=== PATIENT | male | born 1935 | race Caucasian/White ===

== ENCOUNTER 2017-10-06 14:12 | Inpatient (IN) | payer OTHER, MEDICARE ==
[~2017-10-06] VITALS: Ht 172.7 cm; Wt 59.0 kg
[~2017-10-06 14:12] MED LIST: ALBUTEROL0.09 MG/A1 INH; BENICAR20 MG PO; GOOD SENSE ASPI81 M1 PO; LEVAQUIN500 MG PO; LOMOTIL 0.025 M1 TAB PO; MUCINEX600 MG PO; MULTIVITAMIN1 TA1 PO; NADOLOL20 MG PO; SIMVASTATIN20 MG PO; SPIRIVA 18 MCG18 MCG PO; UROXATRAL10 MG PO; ZOFRAN ODT4 MG PO
--- NOTE | 2017-10-06 15:38 | ED DYSPNEA/ASTHMA COMPLAINT ---
History of Present Illness General Chief Complaint: General Adult Stated Complaint: SENT BY URGENT CARE FOR FLU+/PNEUMONIA Source: patient Exam Limitations: no limitations Vital Signs & Intake/Output Vital Signs & Intake/Output Vital Signs Date Time Temp Pulse Resp B/P B/P Pulse O2 O2 Flow FiO2 Mean Ox Delivery Rate 10/06 1819 98.1 72 18 154/68 97 Nasal 2.0L Cannula 10/06 1705 71 18 138/70 90 Room Air 10/06 1639 92 10/06 1432 97.3 73 20 160/71 90 Room Air Allergies Coded Allergies: erythromycin base (ABD PAIN 10/06/17) Reconcile Medications Albuterol Sulfate 2.5 MG/3 ML (0.083 %) VIAL.NEB 1 Vial INH/JOSE BID PRN COPD (Reported) Alfuzosin HCl (Alfuzosin HCl ER) 10 MG TAB.ER.24H 1 TAB PO DAILY (Reported ) Aspirin (Ecotrin*) 81 MG TABLET.DR 1 TAB PO DAILY HEART/BLOOD (Reported) Finasteride 5 MG TABLET 1 TAB PO DAILY PROSTATE (Reported) Guaifenesin (Mucinex) 600 MG TAB.ER.12H 1 TAB PO BID COPD (Reported) Moxifloxacin HCl 400 MG TABLET 1 TAB PO DAILY ABX (Reported) Multiple Vitamin (Multivitamins) 1 EACH TABLET 1 TAB PO DAILY SUPPLEMENT ( Reported) Nadolol 20 MG TABLET 0.5 TAB PO DAILY BP (Reported) Nitroglycerin (Nitrostat) 0.3 MG TAB.SUBL 1 TAB SL AD PRN CHEST PAIN ( Reported) Olmesartan Medoxomil (Benicar) 20 MG TABLET 0.5 TAB PO DAILY BP (Reported) Simvastatin (Simvastatin*) 20 MG TABLET 1 TAB PO QPM CHOLESTEROL (Reported) Tiotropium Polaris (Spiriva) 18 MCG CAP.W.DEV 1 CAP INH DAILY COPD (Reported) Triage Note: PT TO ED FOR URI S/S. WAS SEEN AT URGENT CARE YESTERDAY AND DIAGNOSED WITH FLU AND PNA. WAS PUT ON AVELOX, AFTER PT TOOK THE FIRST DOSE HE FELT DIZZY. HAS NOT TAKEN ANY MORE TODAY. Triage Nurses Notes Reviewed? 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 He does state that yesterday he was evaluated at urgent care facility and had chest x-ray findings concerning of pneumonia and influenza he began moxifloxacin Denies any leg swelling denies any hemoptysis denies any current chest pain back pain and arm pain jaw pain palpitations [place] productive cough is noted by patient (Richy Kolb) Past History Travel History Traveled to [place] past 21 day No Medical History Any Pertinent Medical History? 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 No (Richy Kolb) Review of Systems Review of Systems Constitutional: Reports: see HPI. EENTM: Reports: see HPI. Respiratory: Reports: see HPI, cough. Cardiovascular: Reports: see HPI. GI: Reports: no symptoms. Genitourinary: Reports: no symptoms. Musculoskeletal: Reports: no symptoms. Skin: Reports: no symptoms. Neurological/Psychological: Reports: no symptoms. Hematologic/Endocrine: Reports: no symptoms. Immunologic/Allergic: Reports: no symptoms. All Other Systems: Reviewed and Negative (Richy Kolb) Physical Exam Physical Exam General Appearance: no apparent distress, alert, comfortable Head: atraumatic Eyes: Bilateral: normal appearance, PERRL. Ears, Nose, Throat: normal pharynx, normal ENT inspection, hearing grossly normal Neck: normal inspection Respiratory: no respiratory distress, quiet respiration, decreased breath sounds Cardiovascular: regular rate/rhythm Peripheral Pulses: 2+ radial (R) Gastrointestinal: normal bowel sounds, soft, non-tender Extremities: normal inspection, normal capillary refill, normal range of motion, no edema Neurologic/Psych: no motor/sensory deficits, awake, alert Skin: intact, normal color Core Measures ACS in differential dx? Yes CVA/TIA Diagnosis No Sepsis Present: No Sepsis Focused Exam Completed? No (Miriam LUU,Richy) Progress Differential Diagnosis: asthma, AMI, bronchitis, costochondritis, CHF, COPD, musculoskeletal pain, pericarditis, pulmonary embolism, pneumonia, pneumothorax, rib fracture, unstable angina Plan of Care: Orders Procedure Date/time Status Regular Diet 10/07 B Active TROPONIN LEVEL 10/07 399 Active CBC WITHOUT DIFFERENTIAL 10/07 399 Active BASIC ELECTROLYTES PLUS BUN&CR 10/07 399 Active EKG 10/07 399 Active TROPONIN LEVEL 10/06 2199 Active EKG 10/06 2199 Active Pathway - chart 10/06 2049 Active House Staff 10/06 2049 Active Patient Data 10/06 2049 Active Patient Data 10/06 2004 Active OXYGEN SETUP (GEN) 10/06 192 Active Saline Lock 10/06 1920 Active Admit to inpatient 10/06 192 Active Vital Signs 10/06 192 Active Activity/Ambulation 10/06 192 Active Code Status 10/06 192 Active LACTIC ACID 10/06 1809 Active Telemetry/Threading Machine Feeder Automatic 10/06 1552 Active LOWER RESPIRATORY CULTURE 10/06 1552 Active D-DIMER 10/06 1552 Complete RAPID VIRAL INFLUENZA A 10/06 1509 Complete BLOOD CULTURE 10/06 1509 Active TROPONIN LEVEL 10/06 1509 Complete LACTIC ACID 10/06 1509 Complete COMPREHENSIVE METABOLIC PANEL 10/06 1509 Complete CBC WITHOUT DIFFERENTIAL 10/06 1509 Complete EKG 10/06 1509 Active VTE Mechanical Prophylaxis 10/06 UNK Active FingerStick- Glucose 10/06 UNK Active Laboratory Tests 10/06/17 1600: Anion Gap 12, Estimated GFR > 60, BUN/Creatinine Ratio 17.0, Glucose 106 H, Lactic Acid 1.0, Calcium 8.9, Total Bilirubin 0.9, AST 52, ALT 41, Alkaline Phosphatase 68, Troponin I 0.05, Total Protein 7.3, Albumin 4.3, Globulin 3.0, Albumin/Globulin Ratio 1.4, D-Dimer High Sensitivty 213, CBC w Diff NO MAN DIFF REQ, RBC 4.06 L, MCV 87.8, MCH 29.6, MCHC 33.8, RDW 14.1, MPV 8.7, Gran % 64.1, Lymphocytes % 28.1, Monocytes % 7.4, Eosinophils % 0.2, Basophils % 0.2, Absolute Granulocytes 4.5, Absolute Lymphocytes 2.0, Absolute Monocytes 0.5, Absolute Eosinophils 0, Absolute Basophils 0 Microbiology 10/06 1630 BLOOD: Blood Culture - RECD 10/06 1610 BLOOD: Blood Culture - RECD 10/06 1558 NASOPHARYN: Influenza Virus A & B Rapid Smear - COMP INFLUENZA TYPE B 10/06 155 LOWER RESP: Respiratory Culture - ORD 10/06 155 LOWER RESP: Gram Stain - ORD Patient upon initial presentation was resting comfortably bedside no respiratory distress Patient afebrile, decreased breath sounds noted nebulizer treatments were administered patient does have low 90% oxygen sat at room air patient was given supplemental oxygen which improved Patient has positive influenza Tamiflu was administered Chest x-ray shows no overwhelming convincing evidence of pneumonia however doxycycline and Rocephin was administered IV for concerns of bronchitis Patient also has consideration of COPD exacerbation due to shortness of breath Patient also has concerns of angina on exertion however while at rest in the emergency room his had no symptoms of chest pain or pressure No signs of sepsis d-dimer was unremarkable no concerns of PE No concerns of acute UT initial troponin negative no change in EKG Diagnostic Imaging: Viewed by Me: Radiology Read. Radiology Impression: no acute abnormality Initial ED EK BPM,MULTIPLE ARTIFACT NOTED Comments: PATIENT: RAGHU MONTEJO PRESENT AGE: 81 PATIENT ACCOUNT NO: [id number] : 33 LOCATION: [facility] ORDERING PHYSICIAN: Juan Ramon LUU SERVICE DATE: 10/06/17 EXAM TYPE: RAD - XRY-CHEST XRAY, TWO VIEWS EXAMINATION: XR CHEST CLINICAL INFORMATION: Cough and fever. COMPARISON: Chest radiograph 06/14/2017. TECHNIQUE: 3 radiographs of the chest were obtained including 2 PA radiographs and one lateral radiograph. FINDINGS: Postoperative changes of prior CABG with median sternotomy wires. Stable prominence of the pulmonary interstitium bilaterally likely represents chronic scarring. No focal airspace consolidation. No pleural effusion. Cardiomediastinal silhouette and pulmonary vasculature are within normal limits and unchanged from the prior examination. Degenerative changes of the spine. No acute osseous findings. IMPRESSION: Stable appearance of the chest. No acute cardiopulmonary disease. DICTATED BY: True Figueroa MD DATE/TIME DICTATED:10/06/171739 SLIVER HANDLER:JOHNNA (Richy Kolb) Departure Departure Disposition: STILL A PATIENT Condition: Stable Clinical Impression Primary Impression: Angina effort Secondary Impressions: Bronchitis, COPD exacerbation, Influenza Referrals: Luther Hernandez MD (PCP/Family) Departure Forms: Customer Survey General Discharge Information Admission Note Spoke With: Eladio Wolf MD Documentation of Exam: Documentation of any treatments & extenuating circumstances including Concerns Regarding Discharge (functional status, medication knowledge or non-compliance, living conditions, etc.) that warrant an admission rather than observation: [ Discuss patient with Dr. Wolf who is covering for Dr. Hernandez and which telemetry admission is warranted for concerns of angina on exertion, ] patient warrants telemetry monitoring repeat EKG cardiology consultation, IV antibiotics IV steroids pulmonary consultation Tamiflu antitussives repeat nebulizer treatments (Richy Kolb) PA/FURNACE WORKER Co-Sign Statement Statement: ED Attending supervision documentation- x I saw and evaluated the patient. I have also reviewed all the pertinent lab results and diagnostic results. I agree with the findings and the plan of care as documented in the PA's/FURNACE WORKER's documentation. pneumonia, flu, exertional chest pain [] I have reviewed the ED Record and agree with the PA's/FURNACE WORKER's documentation. [] Additions or exceptions (if any) to the PAs/FURNACE WORKER's note and plan are summarized below: [] (Malu ALMODOVAR,Umang) Critical Care Note Critical Care Note Critical Care Time: 30-74 min (Richy Kolb)
[2017-10-06] MEDS ORDERED: BENICAR20 M1 PO (16:06)
[2017-10-06] MEDS ORDERED: SIMVASTATIN20 M2 PO (16:07)
[2017-10-06] MEDS ORDERED: NADOLOL20 M1 PO (16:07)
[2017-10-06] MEDS ORDERED: FINASTERIDE5 M1 PO (16:07)
[2017-10-06] MEDS ORDERED: MULTIVITAMINS1 EAC9 PO (16:07)
[2017-10-06] MEDS ORDERED: ALBUTEROL2.5 MG/3 M INH/SOL (16:08)
[2017-10-06] MEDS ORDERED: ASPIRIN EC81 M1 PO (16:08)
[2017-10-06] MEDS ORDERED: SPIRIVA18 MCG INH (16:08)
[2017-10-06] MEDS ORDERED: MUCINEX600 M1 PO (16:08)
[2017-10-06] MEDS ORDERED: MOXIFLOXACIN H400 M2 PO (16:09)
[2017-10-06] MEDS ORDERED: ALFUZOSIN HCL E10 MG PO (16:10)
[2017-10-06] MEDS ORDERED: NITROSTAT0.3 M1 SL (16:10)
[2017-10-06 16:15] LABS: ABSOLUTE BASOPHIL COUNT 0 /CUMM (0.0-0.2); ABSOLUTE EOSINOPHIL COUNT 0 /CUMM (0.0-0.7); ABSOLUTE GRANULOCYTE CT 4.5 /CUMM (1.4-6.5); ABSOLUTE MONOCYTE COUNT 0.5 /CUMM (0.10-0.60); BASOPHIL % 0.2 % (0.0-2.0); EOSINOPHIL % 0.2 % (0-5); GRANULOCYTE % 64.1 % (42.2-75.2); HEMATOCRIT 35.7 % (42-52); MEAN CORPUSCULAR HGB 29.6 PG (27.0-31.0); MEAN CORPUSCULAR HGB CONC 33.8 G/DL (33.0-37.0); MEAN CORPUSCULAR VOLUME 87.8 FL (80.0-94.0); MEAN PLATELET VOLUME 8.7 FL (7.4-10.4); PLATELET COUNT 183 /CUMM (130-400); RBC DISTRIBUTION WIDTH 14.1 % (11.5-14.5); RED BLOOD CELL CT 4.06 /CUMM (4.70-6.10)
--- NOTE | 2017-10-06 17:45 | RADIOLOGY REPORT ---
EXAMINATION: XR CHEST CLINICAL INFORMATION: Cough and fever. COMPARISON: Chest radiograph 06/14/2017. TECHNIQUE: 3 radiographs of the chest were obtained including 2 PA radiographs and one lateral radiograph. FINDINGS: Postoperative changes of prior CABG with median sternotomy wires. Stable prominence of the pulmonary interstitium bilaterally likely represents chronic scarring. No focal airspace consolidation. No pleural effusion. Cardiomediastinal silhouette and pulmonary vasculature are within normal limits and unchanged from the prior examination. Degenerative changes of the spine. No acute osseous findings. IMPRESSION: Stable appearance of the chest. No acute cardiopulmonary disease.
--- NOTE | 2017-10-06 20:35 | History & Physical ---
Himanshu ALMODOVAR,Nirav 10/06/172034: General Information and HPI History of Present Illness: Mr. Marie is an 81-year-old male with past medical history of hypertension, hyperlipidemia, myocardial infarction followed by Dr. Grant, COPD followed by Dr. Mcmanus not on home oxygen who presents with upper respiratory infection. The patient started feeling URI symptoms on Sunday including productive cough, fever to 101.5, nasal congestion. His symptoms progressed and on Sunday he visited an urgent care where he was diagnosed with influenza and pneumonia. He was prescribed moxifloxacin. On Sunday, he took the moxifloxacin after breakfast and immediately became "woozy" for about 5 minutes. He denies actually losing consciousness or falling at this time. Today, he also complained of some chest pain with exertion and relieved by nitroglycerin. He has a history of stable angina and never expresses chest pain at rest. He denies any chills, nausea, vomiting, diarrhea, palpitations, orthopnea, leg pain, dysuria, or sore throat. Allergies/Medications Allergies: Coded Allergies: erythromycin base (ABD PAIN 10/06/17) Home Med list Albuterol Sulfate 2.5 MG/3 ML (0.083 %) VIAL.NEB 1 Vial INH/JOSE BID PRN COPD (Reported) Alfuzosin HCl (Alfuzosin HCl ER) 10 MG TAB.ER.24H 1 TAB PO DAILY (Reported ) Aspirin (Ecotrin*) 81 MG TABLET.DR 1 TAB PO DAILY HEART/BLOOD (Reported) Finasteride 5 MG TABLET 1 TAB PO DAILY PROSTATE (Reported) Guaifenesin (Mucinex) 600 MG TAB.ER.12H 1 TAB PO BID COPD (Reported) Moxifloxacin HCl 400 MG TABLET 1 TAB PO DAILY ABX (Reported) Multiple Vitamin (Multivitamins) 1 EACH TABLET 1 TAB PO DAILY SUPPLEMENT ( Reported) Nadolol 20 MG TABLET 0.5 TAB PO DAILY BP (Reported) Nitroglycerin (Nitrostat) 0.3 MG TAB.SUBL 1 TAB SL AD PRN CHEST PAIN ( Reported) Olmesartan Medoxomil (Benicar) 20 MG TABLET 0.5 TAB PO DAILY BP (Reported) Simvastatin (Simvastatin*) 20 MG TABLET 1 TAB PO QPM CHOLESTEROL (Reported) Tiotropium Bells (Spiriva) 18 MCG CAP.W.DEV 1 CAP INH DAILY COPD (Reported) Past History Travel History Traveled to [place] past 21 day No Medical History Neurological: NONE EENT: NONE Cardiovascular: hypertension, hyperlipidemia, myocardial infarction Respiratory: COPD, pneumonia Gastrointestinal: NONE Hepatic: NONE Renal: NONE Musculoskeletal: NONE Psychiatric: NONE Endocrine: NONE Blood Disorders: NONE Cancer(s): NONE 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 EENTM: Reports: see HPI. Cardiovascular: Reports: see HPI. Respiratory: Reports: see HPI. GI: Reports: no symptoms. Genitourinary: Reports: no symptoms. Musculoskeletal: Reports: no symptoms. Skin: Reports: no symptoms. Neurological/Psychological: Reports: no symptoms. Hematologic/Endocrine: Reports: no symptoms. Immunologic/Allergic: Reports: no symptoms. All Other Systems: Reviewed and Negative Exam & Diagnostic Data Last 24 Hrs of Vital Signs/I&O Vital Signs Date Time Temp Pulse Resp B/P B/P Pulse O2 O2 Flow FiO2 Mean Ox Delivery Rate 10/06 2236 98.2 68 12 136/70 93 10/06 2224 94 Nasal 2.0L Cannula 10/06 2111 98.2 84 18 128/66 94 Room Air 10/06 1819 98.1 72 18 154/68 97 Nasal 2.0L Cannula 10/06 1705 71 18 138/70 90 Room Air 10/06 1639 92 10/06 1432 97.3 73 20 160/71 90 Room Air Intake & Output 10/07 0800 10/07 0000 10/06 1600 Intake Total 180 Output Total 350 Balance -170 Intake, Oral 180 Output, Urine 350 Patient 58.967 kg 58.967 kg Weight Weight Reported by Patient Measurement Method Physical Exam General Appearance Alert, Oriented X3, Cooperative, No Acute Distress Cardiovascular Regular Rate, Normal S1, Normal S2 Lungs expiratory crackles and wheezing Abdomen Normal Bowel Sounds, Soft, No Tenderness Neurological Normal Speech Extremities No Edema, Normal Pulses, No Tenderness/Swelling Last 24 Hrs of Labs/Darío: Laboratory Tests 10/06/179: Troponin I 0.06 10/06/17 1600: Anion Gap 12, Estimated GFR > 60, BUN/Creatinine Ratio 17.0, Glucose 106 H, Lactic Acid 1.0, Calcium 8.9, Total Bilirubin 0.9, AST 52, ALT 41, Alkaline Phosphatase 68, Troponin I 0.05, Total Protein 7.3, Albumin 4.3, Globulin 3.0, Albumin/Globulin Ratio 1.4, D-Dimer High Sensitivty 213, CBC w Diff NO MAN DIFF REQ, RBC 4.06 L, MCV 87.8, MCH 29.6, MCHC 33.8, RDW 14.1, MPV 8.7, Gran % 64.1, Lymphocytes % 28.1, Monocytes % 7.4, Eosinophils % 0.2, Basophils % 0.2, Absolute Granulocytes 4.5, Absolute Lymphocytes 2.0, Absolute Monocytes 0.5, Absolute Eosinophils 0, Absolute Basophils 0 Microbiology 10/06 2124 URINE ROUT: Legionella Antigen - COMP 10/06 2124 URINE ROUT: Streptococcus pneumoniae Antigen (M - COMP 10/06 2053 URINE ROUT: Legionella Antigen - CAN Cancelled: COMBINED WITH [id number] 10/06 163 BLOOD: Blood Culture - RECD 10/06 161 BLOOD: Blood Culture - RECD 10/06 1558 NASOPHARYN: Influenza Virus A & B Rapid Smear - COMP INFLUENZA TYPE B 10/06 1552 LOWER RESP: Respiratory Culture - COLB 10/06 155 LOWER RESP: Gram Stain - COLB Assessment/Plan Assessment: Mr. Marie is 81-year-old male with past medical history of hypertension, hyperlipidemia, myocardial infarction followed by Dr. Grant, COPD who presents with upper respiratory infection. On presentation, vital signs were T 97.3, HR 73, RR 20, BP 160/71, saturating 90 % on room air. Laboratories were significant for white blood cell count 7.0, hemoglobin 12.0, sodium 135, chloride 94, troponin 0.05, d-dimer 212. Chest x- ray was negative for any acute abnormality. Flu swab was positive for influenza type B. He received guaifenesin, doxycycline, and ceftriaxone, ostelmevir, methylprednisone, and albuterol in the emergency room. He'll be admitted to telemetry and treated for the following problems: 1. Influenza type B 2. Community-acquired pneumonia 3. Normocytic anemia 4. Mild hyponatremia 5. Stable Angina #Influenza type B/Community-acquired pneumonia: Patient was diagnosed with influenza pneumonia at urgent care. Chest x-ray today does not show any evidence of pneumonia but flu swab positive for influenza type B. -Oseltamivir -Methylprednisone -TRC nebs -Ceftriaxone and doxycycline #Stable Angina: Patient has history of stable angina. -EKG and troponins 3 #Normocytic anemia: Mild and asymptomatic -Iron studies and stool guaiac #Mild hyponatremia: Sodium 135. -Continue to monitor #Chronic medical problems: -Continue home medications DVT prophylaxis with enoxaparin Heart healthy diet Full code As Ranked By This Provider Problem List: 1. Type B influenza Core Measures/Misc (05/13) Acute Coronary Syndrome ACS Diagnosis: No Congestive Heart Failure Congestive Heart Failure Diagnosis No Cerebrovascular Accident CVA/TIA Diagnosis: No VTE (View Protocol) VTE Risk Factors Age>40 No Mechanical VTE Prophylaxis d/t N/A MechProphylax Ordered No VTE Pharm Prophylaxis d/t NA PharmProphylax ordered Sepsis (View protocol) Sepsis Present: No Ewa Arreola MD 10/06/17 2345: Resident Review Statement Resident Statement: examined this patient, discussed with compliance intern Other Findings: Mr Owen is an 81-year-old male with past medical history of hypertension, hyperlipidemia, myocardial infarction (followed by Dr. Grant) and COPD (not on home O2) who presented to the emergency department on 10/06/2017 complaining of exertional chest pain. The patient states that his symptoms of feeling under the weather began on 2017. He subsequently visited the urgent care in [place] ([address] [place] [address]) on 2017 and it appears that he was diagnosed with influenza. The patient stated that he was prescribed a dose of moxifloxacin. He stated that he took one of these medications and soon thereafter developed an "upset stomach". He states that he felt slightly nauseous but did not endorse any emesis. He also felt lightheaded, however did not pass out. He has subsequently not taken any more moxifloxacin. He also endorses a cough. Cough is been productive of workman sputum. Patient lives alone at home. Patient's primary care physician is Dr. Hernandez. Patient's neon tube bender is Dr. Grant. Patient's nuisance wildlife specialist is Dr. Mcmanus. R: At the time of our clinical interaction he denied any chills, nausea, vomiting, palpitations. He did endorse subjective chills up to 101.5 year he also endorses chest pain and dyspnea on exertion. Denies any dysuria or frequency. E: Temperature 97.3. Pulse 73. Respirations 20. Blood pressure 160/71. General Appearance Alert, Oriented X3, Cooperative, No Acute Distress. Skin Temp/Moisture Exam: Warm/Dry. Neck Supple,Normal Range of motion. JVD + Cardiovascular : RRR, Normal S1, Normal S2. Lungs: Diminished BS. Crackles and Wheezing noted L > R Abdomen Normal Bowel Sounds, Soft, No Tenderness Neurological Normal Speech, Strength at 5/5 X4 Ext, Normal Tone, Sensation Intact, Cranial Nerves 3-12 NL. Vascular Pulses Symmetrical. L: Labs WBC 7.0. H&H 12.0 and 35.7. Platelets 183. Sodium 135. Potassium 4.4. BUN 17. Creatinine 1.0. EKG: Rate 74. QT 424. Questionable Incomplete right bundle branch block. I: XRY-CHEST XRAY, TWO VIEWS IMPRESSION: Stable appearance of the chest. No acute cardiopulmonary disease. A/P Mr Owen is an 81-year-old male with past medical history of hypertension, hyperlipidemia, myocardial infarction (followed by Dr. Grant) and COPD (not on home O2) who presented to the emergency department on 10/06/2017 complaining of exertional chest pain. Acute hypoxic respiratory failure, likely worsened by recent diagnosis of flu. Questionable community-acquired pneumonia. Chest pain likely related to angina. History of COPD. History of BPH. Will admit him to telemetry. Serial troponins and EKGs. Obtain cardiology consultation in a.m. May be considered for risk stratification with an outpatient stress test. Does not appear that the patient has had an echocardiogram in the past. Obtain echocardiogram for assessment of ejection fraction. Continue ceftriaxone and doxycycline. Repeat chest x-ray in a.m. for reassessment of worsening opacities vs consolidation (May consider following off antibiotics if patient remains afebrile and culture are negative). IV Solu-Medrol 40 mg every 12. May consider transitioning to prednisone with a quick taper if wheezing improved in a.m. [facility] nebs. Spiriva. Albuterol. Obtain pulmonary consult in am. Incentive spirometer. In the emergency department the patient was found to have a positive flu. Continue Tamiflu twice a day. Continue home medications. DVT prophylaxis with Lovenox. Diet heart healthy. Patient is a full code. Maryann ALMODOVAR,Eladio 10/07/17 1318: Attending MD Review Statement Attending Statement Attending MD Statement: examined this patient, discuss w/resident/PA/SUPPLY CHAIN PROJECT MANAGER, reviewed EMR data (avail), reviewed images, amended to note Attending Assessment/Plan: Mr. Marie was interviewed and examined. His EMR was reviewed. Problems: -AECOPD -Influenza B by rapid test (patient without GI symptoms) -New-onset A. fib/A flutter -CAD history of previous [place] -Exacerbation of stable angina -Hypertension -Hyperlipidemia -BPH Plan: -Admit telemetry -Blood and sputum cultures -Tamiflu -Ceftriaxone and doxycycline (patient pen allergic) -TRC, nebs, oxygen supplementation, Spiriva -Trinitroglycerin when necessary -Serial troponin, EKG -Echocardiogram -Cardiology consultation -Continue statin, beta regan, ASA -Low molecular weight heparin
[2017-10-06 22:37] VITALS: BP 136/70
[2017-10-07 04:34] LABS: ABSOLUTE BASOPHIL COUNT 0 /CUMM (0.0-0.2); ABSOLUTE EOSINOPHIL COUNT 0 /CUMM (0.0-0.7); ABSOLUTE GRANULOCYTE CT 2.5 /CUMM (1.4-6.5); ABSOLUTE MONOCYTE COUNT 0.1 /CUMM (0.10-0.60); BASOPHIL % 0.3 % (0.0-2.0); EOSINOPHIL % 0.1 % (0-5); GRANULOCYTE % 68.1 % (42.2-75.2); HEMATOCRIT 35.2 % (42-52); MEAN CORPUSCULAR HGB 29.4 PG (27.0-31.0); MEAN CORPUSCULAR HGB CONC 33.8 G/DL (33.0-37.0); MEAN CORPUSCULAR VOLUME 87.2 FL (80.0-94.0); MEAN PLATELET VOLUME 8.9 FL (7.4-10.4); PLATELET COUNT 182 /CUMM (130-400); RBC DISTRIBUTION WIDTH 13.6 % (11.5-14.5); RED BLOOD CELL CT 4.03 /CUMM (4.70-6.10); WHITE BLOOD CELL COUNT 3.7 /CUMM (4.8-10.8)
[2017-10-07 06:27] VITALS: BP 116/66
--- NOTE | 2017-10-07 10:00 | Cons- Pulmonary ---
General Information and HPI Consulting Request Date of Consult: 10/07/17 Requested By: Niki Reason for Consult: Shortness of breath influenza History of Present Illness: Patient has history coronary disease COPD not on home oxygen developed URI symptoms was found to have the flu and reportedly diagnosed with pneumonia treated with Tamiflu and moxifloxacin. He felt poorly with chest pain and was admitted. Chest x-ray did not show evidence of pneumonia. He was influenza B positive. He is presently improved. He has scant productive cough Allergies/Medications Allergies: Coded Allergies: erythromycin base (ABD PAIN 10/06/17) Home Med List: Albuterol Sulfate 2.5 MG/3 ML (0.083 %) VIAL.NEB 1 Vial INH/JOSE BID PRN COPD (Reported) Alfuzosin HCl (Alfuzosin HCl ER) 10 MG TAB.ER.24H 1 TAB PO DAILY (Reported ) Aspirin (Ecotrin*) 81 MG TABLET.DR 1 TAB PO DAILY HEART/BLOOD (Reported) Finasteride 5 MG TABLET 1 TAB PO DAILY PROSTATE (Reported) Guaifenesin (Mucinex) 600 MG TAB.ER.12H 1 TAB PO BID COPD (Reported) Moxifloxacin HCl 400 MG TABLET 1 TAB PO DAILY ABX (Reported) Multiple Vitamin (Multivitamins) 1 EACH TABLET 1 TAB PO DAILY SUPPLEMENT ( Reported) Nadolol 20 MG TABLET 0.5 TAB PO DAILY BP (Reported) Nitroglycerin (Nitrostat) 0.3 MG TAB.SUBL 1 TAB SL AD PRN CHEST PAIN ( Reported) Olmesartan Medoxomil (Benicar) 20 MG TABLET 0.5 TAB PO DAILY BP (Reported) Simvastatin (Simvastatin*) 20 MG TABLET 1 TAB PO QPM CHOLESTEROL (Reported) Tiotropium [place] (Spiriva) 18 MCG CAP.W.DEV 1 CAP INH DAILY COPD (Reported) Review of Systems Review of Systems Constitutional: Reports: fever, weakness. Denies: chills. Cardiovascular: Reports: chest pain. Respiratory: Reports: cough, short of breath, sputum production. Denies: hemoptysis. GI: Denies: abdominal pain, diarrhea, melena. 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: NONE Surgical History Surgical History: non-contributory Psychosocial History Services at Home: N/A Smoking Status: Former Smoker ETOH Use: denies use Illicit Drug Use: denies illicit drug use Exam & Diagnostic Data Last 24 Hrs of Vital Signs/I&O Vital Signs Date Time Temp Pulse Resp B/P B/P Pulse O2 O2 Flow FiO2 Mean Ox Delivery Rate 10/07 626 98.2 77 18 116/66 96 Nasal Cannula 10/07 0008 93 Nasal 2.0L Cannula 10/06 2237 98.2 68 12 136/70 93 10/06 2224 94 Nasal 2.0L Cannula 10/06 211 98.2 84 18 128/66 94 Room Air 10/06 1819 98.1 72 18 154/68 97 Nasal 2.0L Cannula 10/06 1705 71 18 138/70 90 Room Air 10/06 1639 92 10/06 1432 97.3 73 20 160/71 90 Room Air Intake & Output 10/07 1600 10/07 0800 10/07 0000 Intake Total 240 180 Output Total 350 Balance 240 -170 Intake, Oral 240 180 Output, Urine 350 Patient 130 lb Weight Since saturation 2 L 96% exam of his chest shows somewhat diminished breath sounds there are no wheezes or crackles cardiac exam showed regular S1 and S2 without murmurs abdomen soft nontender and there is no edema Last 48 Hrs of Labs/Darío: Laboratory Tests 10/07/17 0400: Anion Gap 8, Estimated GFR > 60, BUN/Creatinine Ratio 20.0, Troponin I 0.05, CBC w Diff NO MAN DIFF REQ, RBC 4.03 L, MCV 87.2, MCH 29.4, MCHC 33.8, RDW 13.6, MPV 8.9, Gran % 68.1, Lymphocytes % 28.4, Monocytes % 3.1, Eosinophils % 0.1, Basophils % 0.3, Absolute Granulocytes 2.5, Absolute Lymphocytes 1.0 L, Absolute Monocytes 0.1, Absolute Eosinophils 0, Absolute Basophils 0 10/06/17 2139: Troponin I 0.06 10/06/17 1600: Anion Gap 12, Estimated GFR > 60, BUN/Creatinine Ratio 17.0, Glucose 106 H, Lactic Acid 1.0, Calcium 8.9, Iron 34 L, TIBC 327, Ferritin 130.0, Total Bilirubin 0.9, AST 52, ALT 41, Alkaline Phosphatase 68, Troponin I 0.05, Total Protein 7.3, Albumin 4.3, Globulin 3.0, Albumin/Globulin Ratio 1.4, Vitamin B12 893, Folate > 20.0 H, D-Dimer High Sensitivty 213, CBC w Diff NO MAN DIFF REQ, RBC 4.06 L, MCV 87.8, MCH 29.6, MCHC 33.8, RDW 14.1, MPV 8.7, Gran % 64.1, Lymphocytes % 28.1, Monocytes % 7.4, Eosinophils % 0.2, Basophils % 0.2, Absolute Granulocytes 4.5, Absolute Lymphocytes 2.0, Absolute Monocytes 0.5, Absolute Eosinophils 0, Absolute Basophils 0 Microbiology 10/06 2124 URINE ROUT: Legionella Antigen - COMP 10/06 2124 URINE ROUT: Streptococcus pneumoniae Antigen (M - COMP 10/06 1558 NASOPHARYN: Influenza Virus A & B Rapid Smear - COMP INFLUENZA TYPE B Assessment/Plan Impression/Plan: 81-year-old gentleman with COPD admitted with influenza. It is no evidence of community acquired pneumonia on chest x-ray. Recommendations: Taper FiO2 his saturations allow complete course of Tamiflu with cultures remain negative discontinue antibiotics. Consult Acknowledgment - Thank you for your consult request.
--- NOTE | 2017-10-07 13:36 | PN- Att Addend ---
Attending Addendum Attending Brief Note Mr. Marie was interviewed and examined. His EMR was reviewed. He denies fever, chills, and productive cough. He is afebrile with stable vital signs. Telemetry at this time shows flutter waves with controlled response. He is in no acute distress. Pulmonary exam reveals moderately decreased breath sounds with mild increase in expiratory phase and coarse rhonchi. Cardiovascular exam reveals an irregular rhythm. His extremities are benign. WBC is 3700. Blood and sputum cultures are negative. We are treating Mr. Marie for AECOPD and influenza B by rapid determination. We are continuing his pulmonary medications. We are also continuing his cardiac medications and will consult cardiology concerning his new rhythm.
--- NOTE | 2017-10-07 13:53 | Admission Certification ---
Admission Certification Certification Statement - As attending physician, I certify that at the time of - admission, based on clinical presentation, severity of - symptoms, need for further diagnostic testing and - therapeutic interventions, and risk of adverse outcomes - without in-hospital treatment, in my clinical assessment, - this patient requires an acute hospital stay for a minimum - of two nights or longer. I have also considered psychsocial - factors such as support system, advanced age, financial - issues, cognitive issues, and failed out-patient treatments, - past re-admission history, safety of patient, and lack of - compliance as applicable. Specific rationale supporting this admission is: Treatment of AECOPD with hypoxemia and evaluation and treatment of new arrhythmia
--- NOTE | 2017-10-07 14:06 | PN- Housestaff ---
Subjective Follow-up For: Influenza type B, Committed code pneumonia Atrial fibrillation Tele-Events Since Last Visit: Normal sinus rhythm, atrial fibrillation/flutter, CA 74-87, PVCs Subjective: Patient visited today, he isn't old gentleman was sitting at the bedside comfortably in no acute distress, was alert and oriented. No fever or chills, improved shortness of breathing, no chest pain. Rate changed to afebrile overnight. Cardiology consulted, Eliquis to a lower dose of 2.5 mg was started due to age and weight outpatient. Pulmonary consult, suggested to discontinue antibiotics if cultures remain negative. Blood sugars were high which were contributed to Solu-Medrol. We will start on low dose sliding scale. Review of Systems Constitutional: Reports: see HPI. Objective Last 24 Hrs of Vital Signs/I&O Vital Signs Date Time Temp Pulse Resp B/P B/P Pulse O2 O2 Flow FiO2 Mean Ox Delivery Rate 10/07 1415 98.1 75 16 116/60 95 Nasal 2.0L Cannula 10/07 1115 Nasal 2.0L Cannula 10/07 1114 98 Nasal 2.0L Cannula 10/07 1054 98.2 78 18 116/66 10/07 0627 98.2 77 18 116/66 96 Nasal Cannula 10/07 0008 93 Nasal 2.0L Cannula 10/06 2237 98.2 68 12 136/70 93 10/06 2224 94 Nasal 2.0L Cannula 10/06 2111 98.2 84 18 128/66 94 Room Air Intake & Output 10/07 1600 10/07 0800 10/07 0000 Intake Total 240 180 Output Total 350 Balance 240 -170 Intake, Oral 240 180 Output, Urine 350 Patient 130 lb Weight Physical Exam General Appearance: Alert, Oriented X3, Cooperative, No Acute Distress Skin Temp/Moisture Exam: Warm/Dry Sepsis Skin Exam (color): Normal for Ethnicity HEENT: Atraumatic, EOMI, Mucous Membr. moist/pink Neck: Supple Cardiovascular: Normal S1, Normal S2, irregular, tachycardic Lungs: Normal Air Movement, bilateral wheezing and crackles Abdomen: Soft, No Tenderness Neurological: Normal Speech Current Medications: Current Medications Sig/Sofya Start time Last Medication Dose Route Stop Time Status Admin Albuterol Sulfate 3 ML BID 10/07 2200 AC 10/07 INH 1110 Albuterol Sulfate 3 ML BID PRN 10/06 2199 DC INH Apixaban 2.5 MG BID 10/07 1530 AC 10/07 PO 1648 Aspirin Buffered 81 MG DAILY 10/06 2151 AC 10/07 PO 1051 Atorvastatin Calcium 20 MG 1700 10/06 2200 AC 10/07 PO 1648 Benzonatate 100 MG TID PRN 10/06 2345 AC PO Ceftriaxone Sodium 1,000 MG 10/07 AC IV Ceftriaxone Sodium 0 .STK-MED ONE 10/06 1905 DC .ROUTE Ceftriaxone Sodium 1,000 MG ONCE ONE 10/06 1899 DC 10/06 IV 10/06 190 191 Doxycycline Hyclate 100 MG 10/07 AC Dextrose/Water 100 ML IV Doxycycline Hyclate 100 MG ONCE ONE 10/06 1899 DC 10/06 Dextrose/Water 100 ML IV 10/06 Enoxaparin Sodium 40 MG DAILY 10/07 1000 DC 10/07 SC 1050 Finasteride 5 MG DAILY 10/07 1000 AC 10/07 PO 1051 Guaifenesin 600 MG BID 10/06 220 AC 10/07 PO 1051 Guaifenesin 600 MG ONCE ONE 10/06 191 DC 10/06 PO 10/06 1915 2000 Insulin Aspart 0 TIDAC 10/07 1700 AC 10/07 SC 1658 Methylprednisolone 40 MG Q12 10/06 2200 AC 10/07 IV 1050 Nadolol 10 MG DAILY 10/07 1000 AC 10/07 PO 1054 Nitroglycerin 0.4 MG ONCE PRN 10/06 2199 AC SL Oseltamivir Phosphate 30 MG BID 10/06 220 AC 10/07 PO 10/10 2159 1051 Tiotropium [place] 1 PUF DAILY 10/07 1000 AC 10/07 INH 1050 Last 24 Hrs of Lab/Darío Results Last 24 Hrs of Labs/Mics: Laboratory Tests 10/07/17 0400: Anion Gap 8, Estimated GFR > 60, BUN/Creatinine Ratio 20.0, Hemoglobin A1c Pending, Magnesium 2.0, Troponin I 0.05, TSH 0.434, Free T4 1.15, CBC w Diff NO MAN DIFF REQ, RBC 4.03 L, MCV 87.2, MCH 29.4, MCHC 33.8, RDW 13.6, MPV 8.9, Gran % 68.1, Lymphocytes % 28.4, Monocytes % 3.1, Eosinophils % 0.1, Basophils % 0.3, Absolute Granulocytes 2.5, Absolute Lymphocytes 1.0 L, Absolute Monocytes 0.1, Absolute Eosinophils 0, Absolute Basophils 0 10/06/172138: Troponin I 0.06 Microbiology 10/07 430 LOWER RESP: Respiratory Culture - RES 10/07 430 LOWER RESP: Gram Stain - RES 10/06 2124 URINE ROUT: Legionella Antigen - COMP 10/06 2124 URINE ROUT: Streptococcus pneumoniae Antigen (M - COMP 10/06 2053 URINE ROUT: Legionella Antigen - CAN Cancelled: COMBINED WITH [id number] Assessment/Plan Assessment: Mr. Marie is 81-year-old male with past medical history of hypertension, hyperlipidemia, myocardial infarction followed by Dr. Grant, COPD who presents with upper respiratory infection. On presentation, vital signs were T 97.3, HR 73, RR 20, BP 160/71, saturating 90 % on room air. Laboratories were significant for white blood cell count 7.0, hemoglobin 12.0, sodium 135, chloride 94, troponin 0.05, d-dimer 212. Chest x- ray was negative for any acute abnormality. Flu swab was positive for influenza type B. He received guaifenesin, doxycycline, and ceftriaxone, ostelmevir, methylprednisone, and albuterol in the emergency room. He'll be admitted to telemetry and treated for the following problems: 1. Influenza type B 2. Community-acquired pneumonia 3. Normocytic anemia 4. Mild hyponatremia 5. Stable Angina 6. A. fib #Influenza type B/Community-acquired pneumonia: Patient was diagnosed with influenza pneumonia at urgent care. Chest x-ray today does not show any evidence of pneumonia but flu swab positive for influenza type B. -Continue Oseltamivir -Methylprednisone -TRC nebs -Ceftriaxone and doxycycline -Start low dose sliding scale 2 to increased blood sugar #Stable Angina: Patient has history of stable angina. -EKG and troponins 3 #Normocytic anemia: Mild and asymptomatic -Iron studies and stool guaiac #Mild hyponatremia: Sodium 135. -Continue to monitor #Chronic medical problems: -Continue home medications # Atrial fibrillation -Eliquis 2.5 mg twice a day DVT prophylaxis with enoxaparin Heart healthy diet Full code Problem List: 1. Type B influenza 2. Influenza 3. Afib Pain Ratin Pain Location: None Pain Goal: Pain 4 or less Pain Plan: Continue current plan Tomorrow's Labs & Rationales: CBc bEp
--- NOTE | 2017-10-07 14:14 | Cons- Cardiology ---
General Information and HPI Consulting Request Date of Consult: 10/07/17 Requested By: Luther Hernandez MD Reason for Consult: Atrial fibrillation. Source of Information: patient, old records History of Present Illness: Mr. Brayden Marie is an 81-year-old male with a history of former heavy tobacco use, COPD, hypertension, dyslipidemia, carotid artery disease, and coronary artery disease s/p myocardial infarction ~1984, s/p PTCA ~1994, and CABG 4 ~2001 complicated by transient AF who presented to the ED on Sunday10/05/2017 with upper respiratory symptoms that began on 10/02/2017 with associated fever, nasal congestion, etc. He had been seen the day prior at a walk-in clinic and was told he had pneumonia and the flu and was sent home on Avelox (moxifloxacin), but became dizzy after taking the 1st dosage and discontinued taking it. Continuing to feel poorly with a cough productive of "tannish" sputum he presented to the ED. He denies any chills, nausea, vomiting, diarrhea, muscle/joint aches, etc. He has chronic stable angina pectoris that response to either one sublingual nitroglycerin or discontinuation of the activity responsible for symptom onset within 5 minutes. Over the past week reports having multiple episodes of angina pectoris and had an episode prior to coming to the ED that responded to SL NTG 0.4 mg 1. He denies any recent palpitations, shortness of breath, orthopnea, paroxysmal nocturnal dyspnea, syncope, near syncope, or claudication. Allergies/Medications Allergies: Coded Allergies: erythromycin base (ABD PAIN 10/06/17) Home Med List: Albuterol Sulfate 2.5 MG/3 ML (0.083 %) VIAL.NEB 1 Vial INH/JOSE BID PRN COPD (Reported) Alfuzosin HCl (Alfuzosin HCl ER) 10 MG TAB.ER.24H 1 TAB PO DAILY (Reported ) Aspirin (Ecotrin*) 81 MG TABLET.DR 1 TAB PO DAILY HEART/BLOOD (Reported) Finasteride 5 MG TABLET 1 TAB PO DAILY PROSTATE (Reported) Guaifenesin (Mucinex) 600 MG TAB.ER.12H 1 TAB PO BID COPD (Reported) Moxifloxacin HCl 400 MG TABLET 1 TAB PO DAILY ABX (Reported) Multiple Vitamin (Multivitamins) 1 EACH TABLET 1 TAB PO DAILY SUPPLEMENT ( Reported) Nadolol 20 MG TABLET 0.5 TAB PO DAILY BP (Reported) Nitroglycerin (Nitrostat) 0.3 MG TAB.SUBL 1 TAB SL AD PRN CHEST PAIN ( Reported) Olmesartan Medoxomil (Benicar) 20 MG TABLET 0.5 TAB PO DAILY BP (Reported) Simvastatin (Simvastatin*) 20 MG TABLET 1 TAB PO QPM CHOLESTEROL (Reported) Tiotropium [place] (Spiriva) 18 MCG CAP.W.DEV 1 CAP INH DAILY COPD (Reported) Review of Systems Review of Systems: A 14 point system review was obtained and was noncontributory, other than as above. 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 Surgical History Surgical History: non-contributory Psychosocial History Services at Home: N/A Smoking Status: Former Smoker ETOH Use: denies use Illicit Drug Use: denies illicit drug use Exam & Diagnostic Data Vital Signs and I&O Vital Signs Date Time Temp Pulse Resp B/P B/P Pulse O2 O2 Flow FiO2 Mean Ox Delivery Rate 10/07 1115 Nasal 2.0L Cannula 10/07 1114 98 Nasal 2.0L Cannula 10/07 1054 98.2 78 18 116/66 10/07 0627 98.2 77 18 116/66 96 Nasal Cannula 10/07 0008 93 Nasal 2.0L Cannula 10/06 2237 98.2 68 12 136/70 93 10/06 2224 94 Nasal 2.0L Cannula 10/06 2111 98.2 84 18 128/66 94 Room Air 10/06 1819 98.1 72 18 154/68 97 Nasal 2.0L Cannula 10/06 1705 71 18 138/70 90 Room Air 10/06 1639 92 10/06 1432 97.3 73 20 160/71 90 Room Air Intake & Output 10/07 1600 10/07 0800 10/07 0000 10/06 1600 10/06 0800 10/06 0000 Intake Total 240 180 Output Total 350 Balance 240 -170 Intake, Oral 240 180 Output, Urine 350 Patient 130 lb 130 lb Weight Weight Reported by Patient Measurement Method Physical Exam: Well-developed, well-nourished elderly male in no acute distress. Vital signs: See above. HEENT: Normocephalic, atraumatic, EOMI, slightly dry mucous membranes. Neck: No JVD, no bruits. Lungs: Decreased breath sounds bilaterally. Heart: S1, S2 with soft (grade 1/6) systolic murmur. No gallop or rub. Abdomen: Soft, nontender, positive bowel sounds. Extremities: No edema. Labs/Darío Results: Laboratory Tests 10/07 10/06 0400 2139 Chemistry Sodium (137 - 145 mmol/L) 137 Potassium (3.5 - 5.1 mmol/L) 4.5 Chloride (98 - 107 mmol/L) 97 L Carbon Dioxide (22 - 30 mmol/L) 32 H Anion Gap (5 - 16) 8 BUN (9 - 20 mg/dL) 18 Creatinine (0.7 - 1.2 mg/dL) 0.9 Estimated GFR (>60 ml/min) > 60 BUN/Creatinine Ratio (7 - 25 %) 20.0 Troponin I (<0.11 ng/ml) 0.05 0.06 Hematology CBC w Diff NO MAN DIFF REQ WBC (4.8 - 10.8 /CUMM) 3.7 L RBC (4.70 - 6.10 /CUMM) 4.03 L Hgb (14.0 - 18.0 G/DL) 11.9 L Hct (42 - 52 %) 35.2 L MCV (80.0 - 94.0 FL) 87.2 MCH (27.0 - 31.0 PG) 29.4 MCHC (33.0 - 37.0 G/DL) 33.8 RDW (11.5 - 14.5 %) 13.6 Plt Count (130 - 400 /CUMM) 182 MPV (7.4 - 10.4 FL) 8.9 Gran % (42.2 - 75.2 %) 68.1 Lymphocytes % (20.5 - 51.1 %) 28.4 Monocytes % (1.7 - 9.3 %) 3.1 Eosinophils % (0 - 5 %) 0.1 Basophils % (0.0 - 2.0 %) 0.3 Absolute Granulocytes (1.4 - 6.5 /CUMM) 2.5 Absolute Lymphocytes (1.2 - 3.4 /CUMM) 1.0 L Absolute Monocytes (0.10 - 0.60 /CUMM) 0.1 Absolute Eosinophils (0.0 - 0.7 /CUMM) 0 Absolute Basophils (0.0 - 0.2 /CUMM) 0 02/10 1600 Chemistry Sodium (137 - 145 mmol/L) 135 L Potassium (3.5 - 5.1 mmol/L) 4.4 Chloride (98 - 107 mmol/L) 94 L Carbon Dioxide (22 - 30 mmol/L) 30 Anion Gap (5 - 16) 12 BUN (9 - 20 mg/dL) 17 Creatinine (0.7 - 1.2 mg/dL) 1.0 Estimated GFR (>60 ml/min) > 60 BUN/Creatinine Ratio (7 - 25 %) 17.0 Glucose (65 - 99 mg/dL) 106 H Lactic Acid (0.7 - 2.1 mmol/L) 1.0 Calcium (8.4 - 10.2 mg/dL) 8.9 Iron (49 - 181 ug/dL) 34 L TIBC (261 - 462 ug/dL) 327 Ferritin (17.9 - 464 ng/mL) 130.0 Total Bilirubin (0.2 - 1.3 mg/dL) 0.9 AST (17 - 59 U/L) 52 ALT (21 - 72 U/L) 41 Alkaline Phosphatase (< 127 U/L) 68 Troponin I (<0.11 ng/ml) 0.05 Total Protein (6.3 - 8.2 g/dL) 7.3 Albumin (3.5 - 5.0 g/dL) 4.3 Globulin (1.9 - 4.2 gm/dL) 3.0 Albumin/Globulin Ratio (1.1 - 2.2 %) 1.4 Vitamin B12 (239 - 931 pg/mL) 893 Folate (2.76 - 20.0 ng/mL) > 20.0 H Coagulation D-Dimer High Sensitivty (0 - 243 ng/ml) 213 Hematology CBC w Diff NO MAN DIFF REQ WBC (4.8 - 10.8 /CUMM) 7.0 RBC (4.70 - 6.10 /CUMM) 4.06 L Hgb (14.0 - 18.0 G/DL) 12.0 L Hct (42 - 52 %) 35.7 L MCV (80.0 - 94.0 FL) 87.8 MCH (27.0 - 31.0 PG) 29.6 MCHC (33.0 - 37.0 G/DL) 33.8 RDW (11.5 - 14.5 %) 14.1 Plt Count (130 - 400 /CUMM) 183 MPV (7.4 - 10.4 FL) 8.7 Gran % (42.2 - 75.2 %) 64.1 Lymphocytes % (20.5 - 51.1 %) 28.1 Monocytes % (1.7 - 9.3 %) 7.4 Eosinophils % (0 - 5 %) 0.2 Basophils % (0.0 - 2.0 %) 0.2 Absolute Granulocytes (1.4 - 6.5 /CUMM) 4.5 Absolute Lymphocytes (1.2 - 3.4 /CUMM) 2.0 Absolute Monocytes (0.10 - 0.60 /CUMM) 0.5 Absolute Eosinophils (0.0 - 0.7 /CUMM) 0 Absolute Basophils (0.0 - 0.2 /CUMM) 0 Diagnostic Data EKG Results 10/07/2017: Atrial fibrillation/flutter, probable old inferior wall myocardial infarction. Slightly slower rate when compared to previous tracing. CXR Results 10/06/2017: Stable appearance of the chest. No acute cardiopulmonary disease. Assessment/Plan Assessment/Plan [id number] w/ hx fmr tob use, COPD, HTN, HLD, carotid dz, & CAD s/p MT ~1984, s/ p PTCA ~1994, & CABG 4 ~2001 complicated by transient AF who presented to the ED on Sunday10/05/2017 w/ URI Sxs that began on 10/02/2017 w/ associated fever, nasal congestion, etc. for which she has been diagnosed with PNA & flu and who we are asked to evaluate and help manage in regard to "new onset" atrial fibrillation. His [id number] Score is 4 (HTN, age = or >75 yrs, vasc dz) so he would be an appropriate candidate for anticoagulation, unless unknown contraindications exist. The ventricular response to his age for ablation is well controlled on his outpatient dosage of his nonselective beta regan, Nadalol. 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 Recommendations: * Continue on telemetry, note "negative" troponins, follow-up ECG. * Anticoagulation with a NOAC. * Continue beta regan therapy for control of ventricular response. * Echocardiogram to assess left ventricular systolic function, atrial size, etc. * Discuss increasing angina pectoris with Dr. Grant. * Check magnesium, free T4, TSH, glycosylated hemoglobin A1c, etc. * Management of "pneumonia"/flu per medical service. * DVT prophylaxis being addressed by anticoagulation for the AF. Further recommendations will follow, Thank you. Consult Acknowledgment - Thank you for your consult request.
[2017-10-07 14:15] VITALS: BP 116/60
[2017-10-07 21:58] VITALS: BP 118/48
[2017-10-08 07:21] VITALS: BP 128/64
--- NOTE | 2017-10-08 07:49 | PN- Pulmonary ---
Subjective HPI/Critical Care Issues: Patient feels improved with decreased cough. Objective Current Medications: Current Medications Sig/Sofya Start time Last Medication Dose Route Stop Time Status Admin Albuterol Sulfate 3 ML BID 10/07 2199 AC 10/07 INH 1915 Albuterol Sulfate 3 ML BID PRN 10/06 220 DC INH Apixaban 2.5 MG BID 10/07 1530 AC 10/07 PO 202 Aspirin Buffered 81 MG DAILY 10/06 215 AC 10/07 PO 1051 Atorvastatin Calcium 20 MG 1700 10/06 2200 AC 10/07 PO 1648 Benzonatate 100 MG TID PRN 10/06 2345 AC PO Ceftriaxone Sodium 1,000 MG 10/07 AC 10/07 IV 202 Doxycycline Hyclate 100 MG 10/07 AC 10/07 Dextrose/Water 100 ML IV 202 Enoxaparin Sodium 40 MG DAILY 10/07 1000 DC 10/07 SC 1050 Finasteride 5 MG DAILY 10/07 1000 AC 10/07 PO 1051 Guaifenesin 600 MG BID 10/06 2199 AC 10/07 PO 202 Insulin Aspart 0 TIDAC 10/07 1700 AC 10/07 SC 1658 Methylprednisolone 40 MG Q12 10/06 2199 AC 10/07 IV 2023 Nadolol 10 MG DAILY 10/07 1000 AC 10/07 PO 105 Nitroglycerin 0.4 MG ONCE PRN 10/06 2199 AC SL Oseltamivir Phosphate 30 MG BID 10/06 2199 AC 10/07 PO 10/10 2152023 Tiotropium [place] 1 PUF DAILY 10/07 1000 AC 10/07 INH 1050 Vital Signs & I&O Last 24 Hrs of Vitals and I&O: Vital Signs Date Time Temp Pulse Resp B/P B/P Pulse O2 O2 Flow FiO2 Mean Ox Delivery Rate 10/08 720 97.9 65 18 128/64 96 Nasal Cannula 10/08 0000 Nasal 2.0L Cannula 10/07 2157 97.6 50 20 118/48 98 10/07 191 98 Nasal 2.0L Cannula 10/07 1415 98.1 75 16 116/60 95 Nasal 2.0L Cannula 10/07 1115 Nasal 2.0L Cannula 10/07 1114 98 Nasal 2.0L Cannula 10/07 1054 98.2 78 18 116/66 10/07 0800 94 Nasal 2.0L Cannula Intake & Output 10/08 0800 10/08 0000 10/07 1600 Intake Total 240 160 980 Output Total Balance 240 160 980 Intake, IV 100 Intake, Oral 240 60 980 Oxygen saturations 2 L 9698% exam of his chest shows somewhat diminished breath sounds no wheezes or crackles cardiac exam shows regular S1 and S2 without murmurs Impression/Plan Impression/Plan Impression/Plan: 81-year-old gentleman with COPD admitted with influenza. there is no evidence of community acquired pneumonia on chest x-ray. Recommendations: Taper FiO2 his saturations allow check room air saturation complete course of Tamiflu if cultures remain negative discontinue antibiotics.
[2017-10-08 08:06] LABS: ABSOLUTE BASOPHIL COUNT 0 /CUMM (0.0-0.2); ABSOLUTE EOSINOPHIL COUNT 0 /CUMM (0.0-0.7); ABSOLUTE LYMPH COUNT 1.2 /CUMM (1.2-3.4); ABSOLUTE MONOCYTE COUNT 0.4 /CUMM (0.10-0.60); BASOPHIL % 0.2 % (0.0-2.0); EOSINOPHIL % 0 % (0-5); GRANULOCYTE % 82.9 % (42.2-75.2); HEMATOCRIT 35.3 % (42-52); MEAN CORPUSCULAR HGB 29.5 PG (27.0-31.0); MEAN CORPUSCULAR HGB CONC 33.8 G/DL (33.0-37.0); MEAN CORPUSCULAR VOLUME 87.2 FL (80.0-94.0); MEAN PLATELET VOLUME 9.2 FL (7.4-10.4); PLATELET COUNT 212 /CUMM (130-400); RBC DISTRIBUTION WIDTH 13.6 % (11.5-14.5); RED BLOOD CELL CT 4.05 /CUMM (4.70-6.10)
--- NOTE | 2017-10-08 08:12 | PN- Housestaff ---
See Addendum Charlie Sarah MD,Ami 10/08/17 08: Subjective Follow-up For: Influenza type B, Committed code pneumonia Atrial fibrillation Tele-Events Since Last Visit: SB, NSR, 50-72, PACS Subjective: Patient visited today, pleasant old gentleman was sitting at the bedside comfortably in no acute distress, was alert and oriented. Was grooming himself in a very good mood. No fever or chills, improved shortness of breathing, no chest pain. Rate changed back to sinus. Cardiology consulted, Eliquis to a lower dose of 2.5 mg was continued due to age and weight outpatient. Intial culture grow Staph auerus, ceftriaxone discontinued after conversatin with ID. Review of Systems Constitutional: Reports: see HPI. Objective Last 24 Hrs of Vital Signs/I&O Vital Signs Date Time Temp Pulse Resp B/P B/P Pulse O2 O2 Flow FiO2 Mean Ox Delivery Rate 10/08 1414 98.8 52 20 150/60 95 Room Air 10/08 0850 97 Nasal 2.0L Cannula 10/08 0800 Nasal 2.0L Cannula 10/08 0721 97.9 65 18 128/64 96 Nasal Cannula 10/08 0000 Nasal 2.0L Cannula 10/07 2158 97.6 50 20 118/48 98 Intake & Output 10/08 1600 10/08 0800 10/08 0000 Intake Total 590 240 160 Output Total Balance 590 240 160 Intake, IV 30 100 Intake, Oral 560 240 60 Number 1 Bowel Movements Physical Exam General Appearance: Alert, Oriented X3, Cooperative, No Acute Distress Skin Temp/Moisture Exam: Warm/Dry Sepsis Skin Exam (color): Normal for Ethnicity HEENT: Atraumatic, EOMI, Mucous Membr. moist/pink Cardiovascular: Regular Rate, Normal S1, Normal S2 Lungs: biateral ronchi and wheezing Neurological: Normal Speech, Strength at 5/5 X4 Ext Current Medications: Current Medications Sig/Sofya Start time Last Medication Dose Route Stop Time Status Admin Albuterol Sulfate 3 ML BID 10/07 2200 AC 10/08 INH 0839 Apixaban 2.5 MG BID 10/07 1530 AC 10/08 PO 0952 Aspirin Buffered 81 MG DAILY 10/06 2151 AC 10/08 PO 0952 Atorvastatin Calcium 20 MG 1700 10/06 2200 AC 10/08 PO 1638 Benzonatate 100 MG TID PRN 10/06 2345 AC PO Ceftriaxone Sodium 1,000 MG 10/07 DC 10/07 IV 202 Doxycycline Hyclate 100 MG 10/08 AC Sodium Chloride 100 ML IV Doxycycline Hyclate 100 MG 10/07 DC 10/07 Dextrose/Water 100 ML IV 2022 Finasteride 5 MG DAILY 10/07 1000 AC 10/08 PO 0952 Guaifenesin 600 MG BID 10/06 2199 AC 10/08 PO 0952 Insulin Aspart 0 TIDAC 10/07 1700 AC 10/08 SC 1638 Methylprednisolone 40 MG Q12 10/06 2199 DC 10/08 IV 0952 Nadolol 10 MG DAILY 10/07 1000 AC 10/08 PO 0952 Nitroglycerin 0.4 MG ONCE PRN 10/06 2199 AC SL Oseltamivir Phosphate 30 MG BID 10/06 2199 AC 10/08 PO 10/10 2159 0954 Prednisone 40 MG DAILY 10/09 1000 AC PO Tiotropium [place] 1 PUF DAILY 10/07 1000 AC 10/08 INH 0953 Last 24 Hrs of Lab/Darío Results Last 24 Hrs of Labs/Mics: Laboratory Tests 10/08/17 0618: Anion Gap 12, Estimated GFR > 60, BUN/Creatinine Ratio 26.4 H, CBC w Diff NO MAN DIFF REQ, RBC 4.05 L, MCV 87.2, MCH 29.5, MCHC 33.8, RDW 13.6, MPV 9.2, Gran % 82.9 H, Lymphocytes % 12.6 L, Monocytes % 4.3, Eosinophils % 0, Basophils % 0.2, Absolute Granulocytes 8.0 H, Absolute Lymphocytes 1.2, Absolute Monocytes 0.4, Absolute Eosinophils 0, Absolute Basophils 0 Assessment/Plan Assessment: Mr. Marie is 81-year-old male with past medical history of hypertension, hyperlipidemia, myocardial infarction followed by Dr. Grant, COPD who presents with upper respiratory infection. On presentation, vital signs were T 97.3, HR 73, RR 20, BP 160/71, saturating 90 % on room air. Laboratories were significant for white blood cell count 7.0, hemoglobin 12.0, sodium 135, chloride 94, troponin 0.05, d-dimer 212. Chest x- ray was negative for any acute abnormality. Flu swab was positive for influenza type B. He received guaifenesin, doxycycline, and ceftriaxone, ostelmevir, methylprednisone, and albuterol in the emergency room. He'll be admitted to telemetry and treated for the following problems: 1. Influenza type B 2. questionable Community-acquired pneumonia vs COPD exacerbation 3. Normocytic anemia 4. Mild hyponatremia 5. Stable Angina 6. A. fib #Influenza type B/COPD exacerbation/possible Community-acquired pneumonia: Patient was diagnosed with influenza pneumonia at urgent care. Chest x-ray today does not show any evidence of pneumonia but flu swab positive for influenza type B. Intial LRC revealed staph aureus -Continue Oseltamivir -Methylprednisone -TRC nebs - DC Ceftriaxone - Continue doxycycline -Start low dose sliding scale 2 to increased blood sugar #Stable Angina: Patient has history of stable angina. -EKG and troponins 3 ruled out ACS #Normocytic anemia: Mild and asymptomatic -Iron studies and stool guaiac #Mild hyponatremia: currently improved -Continue to monitor #Chronic medical problems: -Continue home medications # Atrial fibrillation -Eliquis 2.5 mg twice a day DVT prophylaxis with enoxaparin Heart healthy diet Full code Problem List: 1. Afib 2. Influenza due to influenza virus, type B Pain Ratin Pain Location: Continue current plan Pain Goal: Pain 4 or less Pain Plan: Continue current plan Tomorrow's Labs & Rationales: CBC Eladio Gan MD 10/08/17 1413: Attending MD Review Statement Attending Statement Attending MD Statement: examined this patient, discuss w/resident/PA/VERTICAL MILL OPERATOR, agreed w/resident/PA/VERTICAL MILL OPERATOR, reviewed EMR data (avail), discussed with nursing, amended to note Attending Assessment/Plan: Mr. Leiva was interviewed and examined. His EMR was reviewed. He notes decreased cough today. He denies fever, chills, sputum production, and SOB. He denies chest pain/pressure, palpitations, pedal edema, postural dizziness, and orthopnea. He has reverted to sinus rhythm and is borderline bradycardic. He is afebrile. His vital signs are stable. At the time of his visit he appears comfortable off nasal cannula oxygen. He is in no acute distress. Pulmonary exam is notable for slightly increased expiratory phase with soft rhonchi. Cardiac exam reveals regular rate and rhythm. His abdomen is soft and nontender. His extremities are without edema. WBC today is 9700. His H&H is stable. Electrolytes are acceptable and comparable to his previous studies. Sputum is growing staph aureus but his blood cultures are negative. We are continuing to treat his AECOPD with ceftriaxone and doxycycline. In light of his recent culture results it might be prudent to give him a dose of vancomycin and institute contact precautions. We are continuing nebulizers and steroids. He has been anticoagulated with apixaban. We are continuing to monitor his heart rate. An echocardiogram is pending. We are continuing his other maintenance medications.
[2017-10-08 08:31] LABS: WHITE BLOOD CELL COUNT 9.6 /CUMM (4.8-10.8)
--- NOTE | 2017-10-08 11:14 | PN- Cardiology ---
Subjective Subjective: Better. Shortness of breath and cough are improving. No chest pain. No palpitations. Sinus rhythm is noted on telemetry Objective Vital Signs and I&Os Vital Signs Date Time Temp Pulse Resp B/P B/P Pulse O2 O2 Flow FiO2 Mean Ox Delivery Rate 10/08 0850 97 Nasal 2.0L Cannula 10/08 0800 Nasal 2.0L Cannula 10/08 0721 97.9 65 18 128/64 96 Nasal Cannula 10/08 0000 Nasal 2.0L Cannula 10/07 215 97.6 50 20 118/48 98 10/07 1915 98 Nasal 2.0L Cannula 10/07 1415 98.1 75 16 116/60 95 Nasal 2.0L Cannula 10/07 1115 Nasal 2.0L Cannula 10/07 1114 98 Nasal 2.0L Cannula Intake & Output 10/08 1600 10/08 0800 10/08 0000 10/07 1600 10/07 0800 10/07 0000 Intake Total 240 160 980 240 180 Output Total 350 Balance 240 160 980 240 -170 Intake, IV 100 Intake, Oral 240 60 980 240 180 Output, Urine 350 Patient 130 lb Weight Physical Exam: Gen: NAD HEENT: normal Lungs: Decreased breath sounds, normal resp. effort Heart: RRR, S1, S2, 1 out of 6 systolic murmur Abdomen: Soft, nontender, no masses Extremities: No clubbing, cyanosis, or edema. Neuro: Alert and oriented x 3, cranial nerves intact Current Medications: Current Medications Sig/Sofya Start time Last Medication Dose Route Stop Time Status Admin Albuterol Sulfate 3 ML BID 10/07 2199 AC 10/08 INH 0839 Albuterol Sulfate 3 ML BID PRN 10/06 2199 DC INH Apixaban 2.5 MG BID 10/07 1530 AC 10/08 PO 0952 Aspirin Buffered 81 MG DAILY 10/06 2151 AC 10/08 PO 0952 Atorvastatin Calcium 20 MG 1700 10/06 2200 AC 10/07 PO 1648 Benzonatate 100 MG TID PRN 10/06 2345 AC PO Ceftriaxone Sodium 1,000 MG 10/07 AC 10/07 IV 202 Doxycycline Hyclate 100 MG 10/07 AC 10/07 Dextrose/Water 100 ML IV 202 Enoxaparin Sodium 40 MG DAILY 10/07 1000 DC 10/07 SC 1050 Finasteride 5 MG DAILY 10/07 1000 AC 10/08 PO 0952 Guaifenesin 600 MG BID 10/06 2199 AC 10/08 PO 0952 Insulin Aspart 0 TIDAC 10/07 1700 AC 10/08 SC 0800 Methylprednisolone 40 MG Q12 10/06 2199 AC 10/08 IV 0952 Nadolol 10 MG DAILY 10/07 1000 AC 10/08 PO 0952 Nitroglycerin 0.4 MG ONCE PRN 10/06 2199 AC SL Oseltamivir Phosphate 30 MG BID 10/06 2199 AC 10/08 PO 10/10 2159 0954 Tiotropium [place] 1 PUF DAILY 10/07 1000 AC 10/08 INH 0953 Results Last 48 Hrs of Labs/Mics: Laboratory Tests 10/08/17 0618: Anion Gap 12, Estimated GFR > 60, BUN/Creatinine Ratio 26.4 H, CBC w Diff NO MAN DIFF REQ, RBC 4.05 L, MCV 87.2, MCH 29.5, MCHC 33.8, RDW 13.6, MPV 9.2, Gran % 82.9 H, Lymphocytes % 12.6 L, Monocytes % 4.3, Eosinophils % 0, Basophils % 0.2, Absolute Granulocytes 8.0 H, Absolute Lymphocytes 1.2, Absolute Monocytes 0.4, Absolute Eosinophils 0, Absolute Basophils 0 10/07/17 0400: Anion Gap 8, Estimated GFR > 60, BUN/Creatinine Ratio 20.0, Hemoglobin A1c Pending, Magnesium 2.0, Troponin I 0.05, TSH 0.434, Free T4 1.15, CBC w Diff NO MAN DIFF REQ, RBC 4.03 L, MCV 87.2, MCH 29.4, MCHC 33.8, RDW 13.6, MPV 8.9, Gran % 68.1, Lymphocytes % 28.4, Monocytes % 3.1, Eosinophils % 0.1, Basophils % 0.3, Absolute Granulocytes 2.5, Absolute Lymphocytes 1.0 L, Absolute Monocytes 0.1, Absolute Eosinophils 0, Absolute Basophils 0 10/06/17 2139: Troponin I 0.06 10/06/17 1809: Lactic Acid Cancelled 10/06/17 1600: Anion Gap 12, Estimated GFR > 60, BUN/Creatinine Ratio 17.0, Glucose 106 H, Lactic Acid 1.0, Calcium 8.9, Iron 34 L, TIBC 327, Ferritin 130.0, Total Bilirubin 0.9, AST 52, ALT 41, Alkaline Phosphatase 68, Troponin I 0.05, Total Protein 7.3, Albumin 4.3, Globulin 3.0, Albumin/Globulin Ratio 1.4, Vitamin B12 893, Folate > 20.0 H, D-Dimer High Sensitivty 213, CBC w Diff NO MAN DIFF REQ, RBC 4.06 L, MCV 87.8, MCH 29.6, MCHC 33.8, RDW 14.1, MPV 8.7, Gran % 64.1, Lymphocytes % 28.1, Monocytes % 7.4, Eosinophils % 0.2, Basophils % 0.2, Absolute Granulocytes 4.5, Absolute Lymphocytes 2.0, Absolute Monocytes 0.5, Absolute Eosinophils 0, Absolute Basophils 0 10/06/17 1509: Virus Culture Pending Microbiology 10/06 2124 URINE ROUT: Legionella Antigen - COMP 10/06 2124 URINE ROUT: Streptococcus pneumoniae Antigen (M - COMP 10/06 1558 NASOPHARYN: Influenza Virus A & B Rapid Smear - COMP INFLUENZA TYPE B Assessment/Plan Assessment/Plan Assessment: 1. Hypertension 2. Coronary artery disease status post CABG 3. New onset atrial fibrillation, converted to sinus rhythm 4. Influenza infection Plan: * Continue nadolol * Continue Eliquis 2.5 mg p.o. twice daily * Echocardiogram * Follow up with Dr. Grant 1 week after discharge Continue telemetry? Yes
[2017-10-08 14:14] VITALS: BP 150/60
[2017-10-08 22:22] VITALS: BP 140/58
[2017-10-09 05:44] VITALS: BP 142/62
--- NOTE | 2017-10-09 07:15 | PN- Housestaff ---
Subjective Follow-up For: Influenza type B, CAP Tele-Events Since Last Visit: SB HR 40-56 Subjective: Patient has no complaints. No acute events overnight. Review of Systems Constitutional: Reports: see HPI. Objective Last 24 Hrs of Vital Signs/I&O Vital Signs Date Time Temp Pulse Resp B/P B/P Pulse O2 O2 Flow FiO2 Mean Ox Delivery Rate 10/09 1434 97.7 54 20 154/58 95 Room Air 10/09 0900 49 142/62 10/09 0900 90 Room Air Room Air 10/09 0800 Room Air 10/09 0544 98.1 49 20 142/62 91 10/08 2321 Room Air 10/08 2222 97.1 50 20 140/58 94 Room Air 10/08 2010 98 Nasal 2.0L Cannula Intake & Output 10/09 1600 10/09 0800 10/09 0000 Intake Total 460 200 400 Output Total 300 Balance 160 200 400 Intake, IV 10 150 Intake, Oral 450 200 250 Output, Urine 300 Physical Exam General Appearance: Alert, Oriented X3, Cooperative, No Acute Distress Cardiovascular: Regular Rate, Normal S1, Normal S2 Lungs: BL wheezing Abdomen: Normal Bowel Sounds, Soft, No Tenderness Extremities: No Edema Current Medications: Current Medications Sig/Sofya Start time Last Medication Dose Route Stop Time Status Admin Albuterol Sulfate 3 ML BID 10/07 2199 AC 10/09 INH 1918 Amoxicillin/ 875 MG Q12 10/09 2199 AC Clavulanate Potassium PO Apixaban 2.5 MG BID 10/07 1530 AC 10/09 PO 0900 Aspirin Buffered 81 MG DAILY 10/06 215 AC 10/09 PO 0859 Atorvastatin Calcium 20 [place] [address]/06 AC 10/09 PO 1802 Benzonatate 100 MG TID PRN 10/06 2345 AC PO Doxycycline Hyclate 100 MG 10/08 DC 10/08 Sodium Chloride 100 ML IV 2030 Finasteride 5 MG DAILY 10/07 1000 AC 10/09 PO 0900 Guaifenesin 600 MG BID 10/06 2199 AC 10/09 PO 0900 Insulin Aspart 0 TIDAC 10/07 170 AC 10/09 SC 1802 Nadolol 10 MG DAILY 10/07 1000 AC 10/08 PO 0952 Nitroglycerin 0.4 MG ONCE PRN 10/06 2199 AC SL Oseltamivir Phosphate 30 MG BID 10/06 2199 AC 10/09 PO 10/10 215 0859 Prednisone 40 MG DAILY 10/09 1000 AC 10/09 PO 0859 Tiotropium [place] 1 PUF DAILY 10/07 1000 AC 10/09 INH 0901 Last 24 Hrs of Lab/Darío Results Last 24 Hrs of Labs/Mics: Laboratory Tests 10/09/17 0645: Anion Gap 8, Estimated GFR > 60, BUN/Creatinine Ratio 26.4 H, CBC w Diff NO MAN DIFF REQ, RBC 3.85 L, MCV 88.0, MCH 29.7, MCHC 33.8, RDW 13.2, MPV 9.2, Gran % 78.9 H, Lymphocytes % 13.3 L, Monocytes % 7.4, Eosinophils % 0, Basophils % 0.4, Absolute Granulocytes 9.1 H, Absolute Lymphocytes 1.5, Absolute Monocytes 0.9 H, Absolute Eosinophils 0, Absolute Basophils 0 Assessment/Plan Assessment: Mr. Marie is 81-year-old male with past medical history of hypertension, hyperlipidemia, myocardial infarction followed by Dr. Grant, COPD who presents with upper respiratory infection. Active issues: 1. Influenza type B 2. questionable Community-acquired pneumonia vs COPD exacerbation 3. Normocytic anemia 4. Mild hyponatremia 5. Stable Angina 6. A. fib Plan: Influenza type B/COPD exacerbation/possible Community-acquired pneumonia Patient was diagnosed with influenza pneumonia at urgent care. Chest x-ray today does not show any evidence of pneumonia but flu swab positive for influenza type B. LRC revealed staph aureus * Continue Oseltamivir * Methylprednisone * TRC nebs * Discontinue doxycycline * Start Augmentin Chest pain EKG and troponins 3 ruled out ACS * cardiology recommendations appreciated New onset Atrial fibrillation * continue Eliquis 2.5 mg twice a day DVT prophylaxis with Eliquis Diet: Heart healthy Code: Full Problem List: 1. Influenza A 2. Chest pain syndrome 3. COPD exacerbation 4. Pneumonia Pain Ratin Pain Location: NA Pain Goal: Remain pain free Pain Plan: NA Tomorrow's Labs & Rationales: CBC to monitor white count
--- NOTE | 2017-10-09 07:55 | PN- Pulmonary ---
Subjective HPI/Critical Care Issues: Patient feels improved cough is improved he is comfortable on room air Objective Current Medications: Current Medications Sig/Sofya Start time Last Medication Dose Route Stop Time Status Admin Albuterol Sulfate 3 ML BID 10/07 2200 AC 10/08 INH 2007 Apixaban 2.5 MG BID 10/07 1530 AC 10/08 PO 202 Aspirin Buffered 81 MG DAILY 10/06 2151 AC 10/08 PO 0952 Atorvastatin Calcium 20 MG 1700 10/06 2200 AC 10/08 PO 1638 Benzonatate 100 MG TID PRN 10/06 2345 AC PO Ceftriaxone Sodium 1,000 MG 10/07 DC 10/07 IV 2024 Doxycycline Hyclate 100 MG 10/08 AC 10/08 Sodium Chloride 100 ML IV 2030 Doxycycline Hyclate 100 MG 10/07 DC 10/07 Dextrose/Water 100 ML IV 202 Finasteride 5 MG DAILY 10/07 1000 AC 10/08 PO 0952 Guaifenesin 600 MG BID 10/06 2200 AC 10/08 PO 202 Insulin Aspart 0 TIDAC 10/07 1700 AC 10/08 SC 1638 Methylprednisolone 40 MG Q12 10/06 2200 DC 10/08 IV 0952 Nadolol 10 MG DAILY 10/07 1000 AC 10/08 PO 0952 Nitroglycerin 0.4 MG ONCE PRN 10/06 2199 AC SL Oseltamivir Phosphate 30 MG BID 10/06 220 AC 10/08 PO 10/10 2152023 Prednisone 40 MG DAILY 10/09 1000 AC PO Tiotropium [place] 1 PUF DAILY 10/07 1000 AC 10/08 INH 0953 Vital Signs & I&O Last 24 Hrs of Vitals and I&O: Vital Signs Date Time Temp Pulse Resp B/P B/P Pulse O2 O2 Flow FiO2 Mean Ox Delivery Rate 10/09 0444 98.1 49 20 142/62 91 10/08 2321 Room Air 10/082 97.1 50 20 140/58 94 Room Air 10/08 2010 98 Nasal 2.0L Cannula 10/08 1414 98.8 52 20 150/60 95 Room Air 10/08 0850 97 Nasal 2.0L Cannula 10/08 0800 Nasal 2.0L Cannula Intake & Output 10/09 0800 10/09 0000 10/08 1600 Intake Total 200 400 590 Output Total Balance 200 400 590 Intake, IV 150 30 Intake, Oral 200 250 560 Number 1 Bowel Movements Room air oxygen saturation 91% exam of his chest shows somewhat diminished breath sounds there are no wheezes or crackles cardiac exam shows regular S1 and S2 without murmurs Impression/Plan Impression/Plan Impression/Plan: 81-year-old gentleman with COPD admitted with influenza. there is no evidence of community acquired pneumonia on chest x-ray. Sputum is grown staph sensitivities are pending Recommendations: Taper FiO2 his saturations allow check room air saturation complete course of Tamiflu follow-up sensitivities of staph patient appears stable from pulmonary standpoint
[2017-10-09 08:36] LABS: ABSOLUTE BASOPHIL COUNT 0 /CUMM (0.0-0.2); ABSOLUTE EOSINOPHIL COUNT 0 /CUMM (0.0-0.7); ABSOLUTE GRANULOCYTE CT 9.1 /CUMM (1.4-6.5); ABSOLUTE LYMPH COUNT 1.5 /CUMM (1.2-3.4); ABSOLUTE MONOCYTE COUNT 0.9 /CUMM (0.10-0.60); BASOPHIL % 0.4 % (0.0-2.0); EOSINOPHIL % 0 % (0-5); GRANULOCYTE % 78.9 % (42.2-75.2); HEMATOCRIT 33.8 % (42-52); MEAN CORPUSCULAR HGB 29.7 PG (27.0-31.0); MEAN CORPUSCULAR HGB CONC 33.8 G/DL (33.0-37.0); MEAN PLATELET VOLUME 9.2 FL (7.4-10.4); PLATELET COUNT 211 /CUMM (130-400); RBC DISTRIBUTION WIDTH 13.2 % (11.5-14.5); RED BLOOD CELL CT 3.85 /CUMM (4.70-6.10); WHITE BLOOD CELL COUNT 11.6 /CUMM (4.8-10.8)
--- NOTE | 2017-10-09 13:18 | PN- Att Addend ---
Attending Addendum Attending Brief Note Events over the weekend noted, patient was admitted with the flu and an exacerbation of his COPD my feeling better. Appreciate pulmonary's input and recommendations Vital signs are stable, no fever, O2 saturation satisfactory white count 11,600. Sputum growing staph aureus, questionable significance. Will check sensitivities and ask pulmonary to see the antibiotic patient has been on is adequate. Patient is stable in a.m. then we'll start disposition plans. Intake & Output 10/09 Intake Total 200 400 866 804 3584 180 Output Total 350 Balance 200 400 370 451 1846 -170 Intake, IV 150 30 100 Intake, Oral 200 250 052 40 6604 180 Number 1 Bowel Movements Output, Urine 350 Patient 130 lb Weight Laboratory Tests 10/09/17 0645: Anion Gap 8, Estimated GFR > 60, BUN/Creatinine Ratio 26.4 H, CBC w Diff NO MAN DIFF REQ, RBC 3.85 L, MCV 88.0, MCH 29.7, MCHC 33.8, RDW 13.2, MPV 9.2, Gran % 78.9 H, Lymphocytes % 13.3 L, Monocytes % 7.4, Eosinophils % 0, Basophils % 0.4, Absolute Granulocytes 9.1 H, Absolute Lymphocytes 1.5, Absolute Monocytes 0.9 H, Absolute Eosinophils 0, Absolute Basophils 0 10/08/17 0618: Anion Gap 12, Estimated GFR > 60, BUN/Creatinine Ratio 26.4 H, CBC w Diff NO MAN DIFF REQ, RBC 4.05 L, MCV 87.2, MCH 29.5, MCHC 33.8, RDW 13.6, MPV 9.2, Gran % 82.9 H, Lymphocytes % 12.6 L, Monocytes % 4.3, Eosinophils % 0, Basophils % 0.2, Absolute Granulocytes 8.0 H, Absolute Lymphocytes 1.2, Absolute Monocytes 0.4, Absolute Eosinophils 0, Absolute Basophils 0 10/07/17 0400: Anion Gap 8, Estimated GFR > 60, BUN/Creatinine Ratio 20.0, Hemoglobin A1c 5.7, Magnesium 2.0, Troponin I 0.05, TSH 0.434, Free T4 1.15, CBC w Diff NO MAN DIFF REQ, RBC 4.03 L, MCV 87.2, MCH 29.4, MCHC 33.8, RDW 13.6, MPV 8.9, Gran % 68.1, Lymphocytes % 28.4, Monocytes % 3.1, Eosinophils % 0.1, Basophils % 0.3, Absolute Granulocytes 2.5, Absolute Lymphocytes 1.0 L, Absolute Monocytes 0.1, Absolute Eosinophils 0, Absolute Basophils 0 10/06/179: Troponin I 0.06 10/06/17 1809: Lactic Acid Cancelled 10/06/17 1600: Anion Gap 12, Estimated GFR > 60, BUN/Creatinine Ratio 17.0, Glucose 106 H, Lactic Acid 1.0, Calcium 8.9, Iron 34 L, TIBC 327, Ferritin 130.0, Total Bilirubin 0.9, AST 52, ALT 41, Alkaline Phosphatase 68, Troponin I 0.05, Total Protein 7.3, Albumin 4.3, Globulin 3.0, Albumin/Globulin Ratio 1.4, Vitamin B12 893, Folate > 20.0 H, D-Dimer High Sensitivty 213, CBC w Diff NO MAN DIFF REQ, RBC 4.06 L, MCV 87.8, MCH 29.6, MCHC 33.8, RDW 14.1, MPV 8.7, Gran % 64.1, Lymphocytes % 28.1, Monocytes % 7.4, Eosinophils % 0.2, Basophils % 0.2, Absolute Granulocytes 4.5, Absolute Lymphocytes 2.0, Absolute Monocytes 0.5, Absolute Eosinophils 0, Absolute Basophils 0 10/06/17 1509: Virus Culture Pending Microbiology 10/07 430 LOWER RESP: Respiratory Culture - COMP STAPH AUREUS 10/07 430 LOWER RESP: Gram Stain - COMP 10/06 2124 URINE ROUT: Legionella Antigen - COMP 10/06 2124 URINE ROUT: Streptococcus pneumoniae Antigen (M - COMP 10/06 2053 URINE ROUT: Legionella Antigen - CAN Cancelled: COMBINED WITH [id number] 10/06 1630 BLOOD: Blood Culture - RES 10/06 161 BLOOD: Blood Culture - RES 10/06 1558 NASOPHARYN: Influenza Virus A & B Rapid Smear - COMP INFLUENZA TYPE B Microbiology 10/07 430 LOWER RESP: Respiratory Culture - COMP STAPH AUREUS 10/07 430 LOWER RESP: Gram Stain - COMP 10/06 2124 URINE ROUT: Legionella Antigen - COMP 10/06 2124 URINE ROUT: Streptococcus pneumoniae Antigen (M - COMP 10/06 2053 URINE ROUT: Legionella Antigen - CAN Cancelled: COMBINED WITH [id number] 10/06 163 BLOOD: Blood Culture - RES 10/06 161 BLOOD: Blood Culture - RES 10/06 1558 NASOPHARYN: Influenza Virus A & B Rapid Smear - COMP INFLUENZA TYPE B Vital Signs Date Time Temp Pulse Resp B/P B/P Pulse O2 O2 Flow FiO2 Mean Ox Delivery Rate 10/09 0900 49 142/62 10/09 0900 90 Room Air Room Air 10/09 0800 Room Air 10/09 0544 98.1 49 20 142/62 91 10/08 2321 Room Air 10/08 2222 97.1 50 20 140/58 94 Room Air 10/08 2010 98 Nasal 2.0L Cannula 10/08 1414 98.8 52 20 150/60 95 Room Air
[2017-10-09 14:34] VITALS: BP 154/58
--- NOTE | 2017-10-09 14:41 | PN- Cardiology ---
Subjective Subjective: Feeling better. No shortness of breath. No chest pain. No palpitations. youth nutritional monitor reveals sinus rhythm. Objective Vital Signs and I&Os Vital Signs Date Time Temp Pulse Resp B/P B/P Pulse O2 O2 Flow FiO2 Mean Ox Delivery Rate 10/09 0900 49 142/62 10/09 0900 90 Room Air Room Air 10/09 0800 Room Air 10/09 0544 98.1 49 20 142/62 91 10/08 2321 Room Air 10/08 2222 97.1 50 20 140/58 94 Room Air 10/08 2010 98 Nasal 2.0L Cannula Intake & Output 10/09 1600 10/09 0800 10/09 0000 10/08 1600 10/08 0800 10/08 0000 Intake Total 200 400 590 240 160 Output Total Balance 200 400 590 240 160 Intake, IV 150 30 100 Intake, Oral 200 250 560 240 60 Number 1 Bowel Movements Physical Exam: Gen: NAD HEENT: normal Lungs: Decreased breath sounds, normal resp. effort Heart: RRR, S1, S2, 1 out of 6 systolic murmur Abdomen: Soft, nontender, no masses Extremities: No clubbing, cyanosis, or edema. Neuro: Alert and oriented x 3, cranial nerves intact Current Medications: Current Medications Sig/Sofya Start time Last Medication Dose Route Stop Time Status Admin Albuterol Sulfate 3 ML BID 10/07 2199 AC 10/09 INH 0856 Apixaban 2.5 MG BID 10/07 1530 AC 10/09 PO 0900 Aspirin Buffered 81 MG DAILY 10/06 2151 AC 10/09 PO 0859 Atorvastatin Calcium 20 MG 10/06 AC 10/08 PO 1638 Benzonatate 100 MG TID PRN 10/06 2345 AC PO Doxycycline Hyclate 100 MG 10/08 AC 10/08 Sodium Chloride 100 ML IV 2030 Doxycycline Hyclate 100 MG 10/07 DC 10/07 Dextrose/Water 100 ML IV 2023 Finasteride 5 MG DAILY 10/07 1000 AC 10/09 PO 0900 Guaifenesin 600 MG BID 10/06 2199 AC 10/09 PO 0900 Insulin Aspart 0 TIDAC 10/07 1700 AC 10/09 SC 1244 Nadolol 10 MG DAILY 10/07 1000 AC 10/08 PO 0952 Nitroglycerin 0.4 MG ONCE PRN 10/06 2199 AC SL Oseltamivir Phosphate 30 MG BID 10/06 2200 AC 10/09 PO 10/10 2159 0859 Prednisone 40 MG DAILY 10/09 1000 AC 10/09 PO 0859 Tiotropium [place] 1 PUF DAILY 10/07 1000 AC 10/09 INH 0901 Results Last 48 Hrs of Labs/Mics: Laboratory Tests 10/09/17 0645: Anion Gap 8, Estimated GFR > 60, BUN/Creatinine Ratio 26.4 H, CBC w Diff NO MAN DIFF REQ, RBC 3.85 L, MCV 88.0, MCH 29.7, MCHC 33.8, RDW 13.2, MPV 9.2, Gran % 78.9 H, Lymphocytes % 13.3 L, Monocytes % 7.4, Eosinophils % 0, Basophils % 0.4, Absolute Granulocytes 9.1 H, Absolute Lymphocytes 1.5, Absolute Monocytes 0.9 H, Absolute Eosinophils 0, Absolute Basophils 0 10/08/17 0618: Anion Gap 12, Estimated GFR > 60, BUN/Creatinine Ratio 26.4 H, CBC w Diff NO MAN DIFF REQ, RBC 4.05 L, MCV 87.2, MCH 29.5, MCHC 33.8, RDW 13.6, MPV 9.2, Gran % 82.9 H, Lymphocytes % 12.6 L, Monocytes % 4.3, Eosinophils % 0, Basophils % 0.2, Absolute Granulocytes 8.0 H, Absolute Lymphocytes 1.2, Absolute Monocytes 0.4, Absolute Eosinophils 0, Absolute Basophils 0 Assessment/Plan Assessment/Plan Assessment: 1. Hypertension 2. Coronary artery disease status post CABG 3. New onset atrial fibrillation, converted to sinus rhythm 4. Influenza infection Plan: * Continue nadolol * Continue Eliquis 2.5 mg p.o. twice daily * Echocardiogram * Follow up with Dr. Grant 1 week after discharge Continue telemetry? Yes
[2017-10-09 22:14] VITALS: BP 150/70
[2017-10-10 07:00] VITALS: BP 142/76
--- NOTE | 2017-10-10 07:19 | PN- Housestaff ---
Subjective Follow-up For: Influenza type B, CAP Tele-Events Since Last Visit: SB HR 44-59 Subjective: Patient has no complaints. No acute events overnight. Review of Systems Constitutional: Reports: see HPI. Objective Last 24 Hrs of Vital Signs/I&O Vital Signs Date Time Temp Pulse Resp B/P B/P Pulse O2 O2 Flow FiO2 Mean Ox Delivery Rate 10/10 1129 96 Room Air 10/10 0825 63 142/76 10/10 0800 18 95 Room Air 10/10 0700 98.2 63 20 142/76 94 Nasal Cannula 10/10 0000 Room Air 10/09 2214 98.0 85 20 150/70 94 10/09 1921 94 Nasal 2.0L Cannula 10/09 1434 97.7 54 20 154/58 95 Room Air Intake & Output 10/10 1600 10/10 0800 10/10 0000 Intake Total 340 110 Output Total Balance 340 110 Intake, IV 10 Intake, Oral 340 100 Physical Exam General Appearance: Alert, Oriented X3, Cooperative, No Acute Distress Cardiovascular: Regular Rate, Normal S1, Normal S2 Lungs: Mild wheezing Abdomen: Normal Bowel Sounds, Soft, No Tenderness Extremities: No Edema Current Medications: Current Medications Sig/Sofya Start time Last Medication Dose Route Stop Time Status Admin Albuterol Sulfate 3 ML BID 10/07 2199 DCD 10/10 INH 1125 Amoxicillin/ 875 MG Q12 10/09 2199 DCD 10/10 Clavulanate Potassium PO 1116 Apixaban 2.5 MG BID 10/07 1530 DCD 10/10 PO 0825 Aspirin Buffered 81 MG DAILY 10/06 2150 DCD 10/10 PO 0825 Atorvastatin Calcium 20 MG 1700 10/06 2199 DCD 10/09 PO 1802 Benzonatate 100 MG TID PRN 10/06 2345 DCD PO Doxycycline Hyclate 100 MG 10/08 DC 10/08 Sodium Chloride 100 ML IV 2030 Finasteride 5 MG DAILY 10/07 1000 DCD 10/10 PO 0825 Guaifenesin 600 MG BID 10/06 2199 DCD 10/10 PO 0825 Insulin Aspart 0 TIDAC 10/07 1700 DCD 10/09 SC 1802 Nadolol 10 MG DAILY 10/07 1000 DCD 10/10 PO 0825 Nitroglycerin 0.4 MG ONCE PRN 10/06 2199 DCD SL Oseltamivir Phosphate 30 MG BID 10/06 2200 DCD 10/10 PO 10/10 2159 0825 Prednisone 40 MG DAILY 10/09 1000 DCD 10/10 PO 0825 Tiotropium [place] 1 PUF DAILY 10/07 1000 DCD 10/10 INH 0825 Last 24 Hrs of Lab/Darío Results Last 24 Hrs of Labs/Mics: Laboratory Tests 10/10/17 0622: CBC w Diff NO MAN DIFF REQ, RBC 3.92 L, MCV 87.2, MCH 29.9, MCHC 34.3, RDW 13.5 , MPV 9.5, Gran % 70.1, Lymphocytes % 20.7, Monocytes % 8.9, Eosinophils % 0, Basophils % 0.3, Absolute Granulocytes 7.3 H, Absolute Lymphocytes 2.2, Absolute Monocytes 0.9 H, Absolute Eosinophils 0, Absolute Basophils 0 Assessment/Plan Assessment: Mr. Marie is 81-year-old male with past medical history of hypertension, hyperlipidemia, myocardial infarction followed by Dr. Grant, COPD who presents with upper respiratory infection. Active issues: 1. Influenza type B 2. questionable Community-acquired pneumonia vs COPD exacerbation 3. Normocytic anemia 4. Mild hyponatremia 5. Stable Angina 6. A. fib Plan: Influenza type B/COPD exacerbation/possible Community-acquired pneumonia Patient was diagnosed with influenza pneumonia at urgent care. Chest x-ray today does not show any evidence of pneumonia but flu swab positive for influenza type B. LRC revealed staph aureus * Continue Oseltamivir * Methylprednisone * TRC nebs * Discontinue doxycycline * Continue Augmentin upon discharge Chest pain EKG and troponins 3 ruled out ACS * cardiology recommendations appreciated New onset Atrial fibrillation * continue Eliquis 2.5 mg twice a day * ECHO to r/o SHD or valvular abnormalities DVT prophylaxis with Eliquis Diet: Heart healthy Code: Full Patient stable for discharge Problem List: 1. Pneumonia 2. COPD exacerbation 3. Afib 4. Type B influenza Pain Ratin Pain Location: NA Pain Goal: Remain pain free Pain Plan: NA Tomorrow's Labs & Rationales: None
--- NOTE | 2017-10-10 07:56 | PN- Pulmonary ---
Subjective HPI/Critical Care Issues: Patient's cough and shortness of breath improved he is ambulating without limitation he is comfortable on room air Objective Current Medications: Current Medications Sig/Sofya Start time Last Medication Dose Route Stop Time Status Admin Albuterol Sulfate 3 ML BID 10/07 2199 AC 10/09 INH 1918 Amoxicillin/ 875 MG Q12 10/090 AC 10/09 Clavulanate Potassium PO 2143 Apixaban 2.5 MG BID 10/07 1530 AC 10/09 PO 2142 Aspirin Buffered 81 MG DAILY 10/06 215 AC 10/09 PO 0859 Atorvastatin Calcium 20 MG 1700 10/06 2200 AC 10/09 PO 1802 Benzonatate 100 MG TID PRN 10/06 234 AC PO Doxycycline Hyclate 100 MG 10/08 DC 10/08 Sodium Chloride 100 ML IV 2030 Finasteride 5 MG DAILY 10/07 1000 AC 10/09 PO 0900 Guaifenesin 600 MG BID 10/06 2199 AC 10/09 PO 2142 Insulin Aspart 0 TIDAC 10/07 1700 AC 10/09 SC 1802 Nadolol 10 MG DAILY 10/07 1000 AC 10/08 PO 0952 Nitroglycerin 0.4 MG ONCE PRN 10/06 2199 AC SL Oseltamivir Phosphate 30 MG BID 10/06 2199 AC 10/09 PO 10/10 215 214 Prednisone 40 MG DAILY 10/09 1000 AC 10/09 PO 0859 Tiotropium [place] 1 PUF DAILY 10/07 1000 AC 10/09 INH 0901 Vital Signs & I&O Last 24 Hrs of Vitals and I&O: Vital Signs Date Time Temp Pulse Resp B/P B/P Pulse O2 O2 Flow FiO2 Mean Ox Delivery Rate 10/10 0700 98.2 63 20 142/76 94 Nasal Cannula 10/10 0000 Room Air 10/09 221 98.0 85 20 150/70 94 10/09 1921 94 Nasal 2.0L Cannula 10/09 1434 97.7 54 20 154/58 95 Room Air 10/09 0900 49 142/62 10/09 0900 90 Room Air Room Air 10/09 0800 Room Air Intake & Output 10/10 0800 10/10 0000 10/09 1600 Intake Total 100 110 460 Output Total 300 Balance 100 110 160 Intake, IV 10 10 Intake, Oral 100 100 450 Output, Urine 300 Room air oxygen saturation 94% exam of his chest shows diminished breath sounds there are no wheezes or crackles cardiac exam shows regular S1 and S2 without murmurs Impression/Plan Impression/Plan Impression/Plan: 81-year-old gentleman with COPD admitted with influenza. there is no evidence of community acquired pneumonia on chest x-ray. Sputum is grown sensitive staph aureus Recommendations: Patient's restrictive status has markedly improved and appears stable for discharge from pulmonary standpoint
[2017-10-10 08:19] LABS: ABSOLUTE BASOPHIL COUNT 0 /CUMM (0.0-0.2); ABSOLUTE EOSINOPHIL COUNT 0 /CUMM (0.0-0.7); ABSOLUTE GRANULOCYTE CT 7.3 /CUMM (1.4-6.5); ABSOLUTE LYMPH COUNT 2.2 /CUMM (1.2-3.4); ABSOLUTE MONOCYTE COUNT 0.9 /CUMM (0.10-0.60); BASOPHIL % 0.3 % (0.0-2.0); EOSINOPHIL % 0 % (0-5); GRANULOCYTE % 70.1 % (42.2-75.2); HEMATOCRIT 34.2 % (42-52); MEAN CORPUSCULAR HGB 29.9 PG (27.0-31.0); MEAN CORPUSCULAR HGB CONC 34.3 G/DL (33.0-37.0); MEAN CORPUSCULAR VOLUME 87.2 FL (80.0-94.0); MEAN PLATELET VOLUME 9.5 FL (7.4-10.4); PLATELET COUNT 208 /CUMM (130-400); RBC DISTRIBUTION WIDTH 13.5 % (11.5-14.5); RED BLOOD CELL CT 3.92 /CUMM (4.70-6.10); WHITE BLOOD CELL COUNT 10.4 /CUMM (4.8-10.8)
[2017-10-10 08:25] VITALS: BP 142/76
[2017-10-10] MEDS ORDERED: TAMIFLU30 M1 PO (09:00)
[2017-10-10] MEDS ORDERED: AMOX-CLAV 875-1 EACH PO (09:00)
[2017-10-10] MEDS ORDERED: ELIQUIS2.5 M1 PO (09:01)
--- NOTE | 2017-10-10 09:04 | Patient Discharge Instructions ---
Discharge Instructions General Discharge Information You were seen/treated for: Pneumonia Influenza You had these procedures: none Special Instructions: Follow up with your PCP upon discharge Follow up with your vision mixer within 1 week after discharge for ECHO results Follow up with your manager spanish within 1 week after discharge Diet Continue normal diet: Yes Acute Coronary Syndrome Inclusion Criteria At DC or during hospital stay patient has or had the following: ACS DIAGNOSIS No Discharge Core Measures Meds if any: Prescribed or Continued at Discharge Meds if any: NOT Prescribed or Continued at Discharge Congestive Heart Failure Inclusion Criteria At DC or during hospital stay patient has or had the following: CHF DIAGNOSIS No Discharge Core Measures Meds if any: Prescribed or Continued at Discharge Meds if any: NOT Prescribed or Continued at Discharge Cerebrovascular accident Inclusion Criteria At DC or during hospital stay patient has or had the following: CVA/TIA Diagnosis No Discharge Core Measures Meds if any: Prescribed or Continued at Discharge Meds if any: NOT Prescribed or Continued at Discharge Venous thromboembolism Inclusion Criteria VTE Diagnosis No VTE Type NONE VTE Confirmed by (Test) NONE Discharge Core Measures - Per Current guidelines, there needs to be overlap - treatment for the first 5 days of Warfarin therapy. - If discharged on Warfarin prior to 5 days of - overlap therapy, the patient will need to be - assessed for post discharge needs including - *Post discharge parental anticoagulation - *Warfarin and/or parental anticoagulation education - *Follow up date to check INR post discharge At least 5 days overlap therapy as Inpatient No Meds if any: Prescribed or Continued at Discharge Note: Overlap Therapy is Warfarin and Anticoagulant Meds if any: NOT Prescribed or Continued at Discharge
[2017-10-10] MEDS ORDERED: PREDNISONE10 M2 PO (09:08)
--- NOTE | 2017-10-10 09:51 | PN- Att Addend ---
Attending Addendum Attending Brief Note Patient continues to improve Vital signs are stable, no fever. Adequate oxygen saturation on room air. Lungs have better air entry. Ready discharge today appreciate pulmonary's input and recommendations we will taper his steroids. See the CMR. Follow-up in the office and patient was treated for COPD exacerbation and flu. Intake & Output 10/10 1600 10/10 0400 10/09 1600 10/09 0400 10/08 1600 10/08 0400 Intake Total 100 110 660 400 830 160 Output Total 300 Balance 100 110 360 400 830 160 Intake, IV 10 10 150 30 100 Intake, Oral 100 100 650 250 800 60 Number 1 Bowel Movements Output, Urine 300 Current Medications Sig/Sofya Start time Last Medication Dose Route Stop Time Status Admin Albuterol Sulfate 3 ML BID 10/07 2199 AC 10/09 INH 1918 Amoxicillin/ 875 MG Q12 10/09 2199 AC 10/09 Clavulanate Potassium PO 2143 Apixaban 2.5 MG BID 10/07 1530 AC 10/10 PO 0825 Aspirin Buffered 81 MG DAILY 10/06 215 AC 10/10 PO 0825 Atorvastatin Cal[place] 20 MG 17010/06 2200 AC 10/09 PO 1802 Benzonatate 100 MG TID PRN 10/06 2345 AC PO Doxycycline Hyclate 100 MG 10/08 DC 10/08 Sodium Chloride 100 ML IV 2030 Finasteride 5 MG DAILY 10/07 1000 AC 10/10 PO 0825 Guaifenesin 600 MG BID 10/06 2199 AC 10/10 PO 0825 Insulin Aspart 0 TIDAC 10/07 1700 AC 10/09 SC 1802 Nadolol 10 MG DAILY 10/07 1000 AC 10/10 PO 0825 Nitroglycerin 0.4 MG ONCE PRN 10/06 2199 AC SL Oseltamivir Phosphate 30 MG BID 10/06 2199 AC 10/10 PO 10/10 2159 0825 Prednisone 40 MG DAILY 10/09 1000 AC 10/10 PO 0825 Tiotropium [place] 1 PUF DAILY 10/07 1000 AC 10/10 INH 0825 Laboratory Tests 10/10/17 0622: CBC w Diff NO MAN DIFF REQ, RBC 3.92 L, MCV 87.2, MCH 29.9, MCHC 34.3, RDW 13.5 , MPV 9.5, Gran % 70.1, Lymphocytes % 20.7, Monocytes % 8.9, Eosinophils % 0, Basophils % 0.3, Absolute Granulocytes 7.3 H, Absolute Lymphocytes 2.2, Absolute Monocytes 0.9 H, Absolute Eosinophils 0, Absolute Basophils 0 10/09/17 0645: Anion Gap 8, Estimated GFR > 60, BUN/Creatinine Ratio 26.4 H, CBC w Diff NO MAN DIFF REQ, RBC 3.85 L, MCV 88.0, MCH 29.7, MCHC 33.8, RDW 13.2, MPV 9.2, Gran % 78.9 H, Lymphocytes % 13.3 L, Monocytes % 7.4, Eosinophils % 0, Basophils % 0.4, Absolute Granulocytes 9.1 H, Absolute Lymphocytes 1.5, Absolute Monocytes 0.9 H, Absolute Eosinophils 0, Absolute Basophils 0 10/08/17 0618: Anion Gap 12, Estimated GFR > 60, BUN/Creatinine Ratio 26.4 H, CBC w Diff NO MAN DIFF REQ, RBC 4.05 L, MCV 87.2, MCH 29.5, MCHC 33.8, RDW 13.6, MPV 9.2, Gran % 82.9 H, Lymphocytes % 12.6 L, Monocytes % 4.3, Eosinophils % 0, Basophils % 0.2, Absolute Granulocytes 8.0 H, Absolute Lymphocytes 1.2, Absolute Monocytes 0.4, Absolute Eosinophils 0, Absolute Basophils 0 Vital Signs Date Time Temp Pulse Resp B/P B/P Pulse O2 O2 Flow FiO2 Mean Ox Delivery Rate 10/10 0825 63 142/76 10/10 0700 98.2 63 20 142/76 94 Nasal Cannula 10/10 0000 Room Air 10/09 2214 98.0 85 20 150/70 94 10/09 1921 94 Nasal 2.0L Cannula 10/09 1434 97.7 54 20 154/58 95 Room Air
--- NOTE | 2017-10-10 12:39 | PN- Cardiology ---
Objective Vital Signs and I&Os Vital Signs Date Time Temp Pulse Resp B/P B/P Pulse O2 O2 Flow FiO2 Mean Ox Delivery Rate 10/10 1129 96 Room Air 10/10 0825 63 142/76 10/10 0800 18 95 Room Air 10/10 0700 98.2 63 20 142/76 94 Nasal Cannula 10/10 0000 Room Air 10/09 2214 98.0 85 20 150/70 94 10/09 1921 94 Nasal 2.0L Cannula 10/09 1434 97.7 54 20 154/58 95 Room Air Intake & Output 10/10 1600 10/10 0800 10/10 0000 10/09 1600 10/09 0800 10/09 0000 Intake Total 340 110 460 200 400 Output Total 300 Balance 340 110 160 200 400 Intake, IV 10 10 150 Intake, Oral 340 100 450 200 250 Output, Urine 300 Current Medications: Current Medications Sig/Sofya Start time Last Medication Dose Route Stop Time Status Admin Albuterol Sulfate 3 ML BID 10/07 2199 AC 10/10 INH 1125 Amoxicillin/ 875 MG Q12 10/09 220 AC 10/10 Clavulanate Potassium PO 1116 Apixaban 2.5 MG BID 10/07 1530 AC 10/10 PO 0825 Aspirin Buffered 81 MG DAILY 10/06 215 AC 10/10 PO 0825 Atorvastatin Calcium 20 MG 10/06 AC 10/09 PO 1802 Benzonatate 100 MG TID PRN 10/06 2345 AC PO Doxycycline Hyclate 100 MG 10/08 DC 10/08 Sodium Chloride 100 ML IV 2030 Finasteride 5 MG DAILY 10/07 1000 AC 10/10 PO 0825 Guaifenesin 600 MG BID 10/06 2199 AC 10/10 PO 0825 Insulin Aspart 0 TIDAC 10/07 1700 AC 10/09 SC 1802 Nadolol 10 MG DAILY 10/07 1000 AC 10/10 PO 0825 Nitroglycerin 0.4 MG ONCE PRN 10/06 2199 AC SL Oseltamivir Phosphate 30 MG BID 10/06 2199 AC 10/10 PO 10/10 2159 0825 Prednisone 40 MG DAILY 10/09 1000 AC 10/10 PO 0825 Tiotropium [place] 1 PUF DAILY 10/07 1000 AC 10/10 INH 0825 Results Last 48 Hrs of Labs/Mics: Laboratory Tests 10/10/17 0622: CBC w Diff NO MAN DIFF REQ, RBC 3.92 L, MCV 87.2, MCH 29.9, MCHC 34.3, RDW 13.5 , MPV 9.5, Gran % 70.1, Lymphocytes % 20.7, Monocytes % 8.9, Eosinophils % 0, Basophils % 0.3, Absolute Granulocytes 7.3 H, Absolute Lymphocytes 2.2, Absolute Monocytes 0.9 H, Absolute Eosinophils 0, Absolute Basophils 0 10/09/17 0645: Anion Gap 8, Estimated GFR > 60, BUN/Creatinine Ratio 26.4 H, CBC w Diff NO MAN DIFF REQ, RBC 3.85 L, MCV 88.0, MCH 29.7, MCHC 33.8, RDW 13.2, MPV 9.2, Gran % 78.9 H, Lymphocytes % 13.3 L, Monocytes % 7.4, Eosinophils % 0, Basophils % 0.4, Absolute Granulocytes 9.1 H, Absolute Lymphocytes 1.5, Absolute Monocytes 0.9 H, Absolute Eosinophils 0, Absolute Basophils 0 Assessment/Plan Assessment/Plan Assessment: 1. Hypertension 2. Coronary artery disease status post CABG 3. New onset atrial fibrillation, converted to sinus rhythm 4. Influenza infection Plan: * Continue nadolol * Continue Eliquis 2.5 mg p.o. twice daily * Echocardiogram pending * Follow up with me in the office 1 week after discharge Continue telemetry? No
--- NOTE | 2017-10-11 11:04 | ECHOCARDIOGRAM REPORT ---
RAGHU MONTEJO Age: 81 : 1935 Gender: M Exam Date: 10/10/2017 11:43 Exam Location: [facility] Ht (in): 68 Wt (lb): 130 BSA: 1.68 BP: 142 / 62 Ordering Physician: Ewa Arreola MD Referring Physician: Ewa Arreola MD Technologist: Huang Ayala [facility] Room Number: 182-1 Indications: Chest Pain Rhythm: PVCs Technical Quality: Fair, Technically difficult study FINDINGS Left Ventricle Normal size left ventricle. No obvious regional wall motion abnormalities. Normal left ventricular ejection fraction estimated at 60-65%. Right Ventricle Right ventricle not well visualized, grossly normal. Right Atrium Normal right atrial size. Left Atrium Mild to moderate left atrial dilatation. Mitral Valve Mitral valve thickened. [id number]-byftgiqu mitral regurgitation. Aortic Valve Trileaflet aortic valve. Diffuse thickening (sclerosis) of the aortic valve cusps without reduced excursion. No aortic stenosis. Trace aortic regurgitation. Tricuspid Valve Tricuspid valve not well visualized, grossly normal. Trace to mild tricuspid regurgitation. Right ventricular systolic pressure estimated at 34 mmHg. Pulmonic Valve Structurally normal pulmonic valve. Mild pulmonic regurgitation. Pericardium No pericardial effusion. Great Vessels Normal size aortic root and proximal ascending aorta. CONCLUSIONS 1. This was a technically difficult examination 2. Mild aortic sclerosis is present with minimal aortic insufficiency. 3. Mitral leaflet thickening is present with mild to moderate mitral insufficiency and mild to moderate left atrial enlargement. 4. There is no pericardial fluid present. 5. The left ventricular chamber size and systolic function appear normal. There are no obvious resting wall motion abnormalities. 6. Mild tricuspid and pulmonic insufficiency are present with no significant pulmonary hypertension. Virginia Grant M.D. (Electronically Signed) Final Date: 11 October 2017 11:03 MEASUREMENTS (Male / Female) Normal Values 2D ECHO LV Diastolic Diameter PLAX 4.7 cm 4.2 - 5.9 / 3.9 - 5.3 cm LV Systolic Diameter PLAX 2.8 cm 2.1 - 4.0 cm LV Fractional Shortening PLAX 40.4 % 25 - 46 % LV Ejection Fraction 2D Teich 71.1 % IVS Diastolic Thickness 1.0 cm LVPW Diastolic Thickness 0.9 cm LV Relative Wall Thickness 0.4 RV Internal Dim ED PLAX 3.5 cm 1.9 - 3.8 cm LVOT Diameter 2.0 cm Aortic Root Diameter 2.6 cm LA Systolic Diameter LX 3.3 cm 3.0 - 4.0 / 2.7 - 3.8 cm Ascending Aorta Diameter 3.0 cm DOPPLER AV Peak Velocity 99.3 cm/s AV Peak Gradient 3.9 mmHg AV Mean Velocity 62.2 cm/s AV Mean Gradient 2.0 mmHg AV Velocity Time Integral 24.0 cm AI Deceleration [place] 173.0 cm/s AI Peak Velocity 335.0 cm/s AI Pressure Half Time 567.0 ms AI Peak Gradient 44.9 mmHg LVOT Peak Velocity 75.2 cm/s LVOT Peak Gradient 2.3 mmHg LVOT Mean Velocity 46.2 cm/s LVOT Mean Gradient 1.0 mmHg LVOT Velocity Time Integral 21.4 cm LVOT Stroke Volume 67.2 cm AV Area Cont Eq vti 2.8 cm AV Area Cont Eq pk 2.4 cm MV Peak Velocity 103.0 cm/s MV Peak Gradient 4.2 mmHg MV Mean Velocity 45.7 cm/s MV Mean Gradient 1.0 mmHg Mitral E Point Velocity 96.3 cm/s Mitral A Point Velocity 69.6 cm/s Mitral E to A Ratio 1.4 MV PHT Velocity 115.0 cm/s MV Deceleration [place] 574.0 cm/s MV Pressure Half Time 60.1 ms MV Area PHT 3.7 cm MV Deceleration Time 148.0 ms MR Peak Velocity 599.0 cm/s MR Peak Gradient 143.5 mmHg TR Peak Velocity 263.0 cm/s TR Peak Gradient 27.7 mmHg Right Atrial Pressure 10.0 mmHg Pulmonary Artery Systolic Pressu 37.7 mmHg Right Ventricular Systolic Press 37.7 mmHg PV Peak Velocity 55.1 cm/s PV Peak Gradient 1.2 mmHg PV Mean Velocity 41.3 cm/s PV Mean Gradient 1.0 mmHg PV Velocity Time Integral 14.5 cm LV E' Lateral Velocity 6.0 cm/s Mitral E to LV E' Lateral Ratio 15.9 LV E' Septal Velocity 6.5 cm/s Mitral E to LV E' Septal Ratio 14.7
== END 2017-10-10 13:00 | DRG 194 ==
LOC: ERH 14:12 → ERHI 19:21 → 1NO 19:21 → ENRESERV 20:58 → ENTRNSPT 21:56 → EDTRNSPTSTS 22:04 → 1NO 22:11 → CMPTRNSPT 22:22 → 1NO 10-07 01:00 → ENPENDDIS 10-10 09:40 → 1NO 10-10 13:00
PROVIDERS: Physician Assistant Medical; Radiology Vascular & Interventional Radiology; Student in an Organized Health Care Education/Training Program
DX: J10.1 Influenza due to other identified influenza virus with other respiratory manifestations (principal); J44.1 Chronic obstructive pulmonary disease with (acute) exacerbation; E87.1 Hypo-osmolality and hyponatremia; I48.91 Unspecified atrial fibrillation; I25.10 Atherosclerotic heart disease of native coronary artery without angina pectoris; Z95.1 Presence of aortocoronary bypass graft; A49.01 Methicillin susceptible Staphylococcus aureus infection, unspecified site; I20.8 Other forms of angina pectoris
CPT/HCPCS: 1NP; 87184; 36415; 36592; 71046; 82436; 87040; 87070; 87147; 87449; 87450; 87804; 87804-59; 93005; 93010; 93306; 96374; 96375; 99291; J0696; J1650; J2920; J2930